=== PATIENT | male | born 1960 | race Hispanic/Latino ===

== ENCOUNTER 2016-07-10 09:46 | Outpatient (CLI) | payer BC ==
--- NOTE | 2016-07-10 14:47 | Fluoroscopy Report ---
DOUBLE CONTRAST BARIUM ENEMA INDICATION: Failed colonoscopy. Cirrhosis, hepatitis C. COMPARISON: None similar. FINDINGS: Preliminary radiograph demonstrates a nonobstructive bowel gas pattern. Few air containing small bowel loops in the left hemiabdomen measure up to 3.5 cm caliber/possible ileus. Osteopenia. Using fluoroscopic guidance, the entire colon filled in retrograde fashion with barium and air. The colonic caliber and mucosal pattern are normal in appearance, allowing for barium flocculation/stool artifact. Redundant transverse colon. No constricting lesions or fixed intraluminal masses identified. Reflux identified into the terminal ileum and/or appendix. CONCLUSION: Unremarkable air contrast barium enema. Thank you for the opportunity to participate in this patient's care.
== END 2016-07-10 09:47 | disposition home or self-care (01) ==
LOC: FLUORO 09:46
PROVIDERS: ATTEND Internal Medicine Gastroenterology
DX: Z12.11 Encounter for screening for malignant neoplasm of colon (principal); B19.20 Unspecified viral hepatitis C without hepatic coma; I85.00 Esophageal varices without bleeding; M85.80 Other specified disorders of bone density and structure, unspecified site; R18.8 Other ascites
CPT/HCPCS: 74280

== ENCOUNTER 2016-10-16 07:29 | Day surgery (SDC) | payer BC ==
[2016-10-16 08:53] LABS: INR 1.32 (0.87-1.13)
[2016-10-16 08:54] LABS: Partial Thromboplastin Time 30.4 Sec. (24.2-36.6)
--- NOTE | 2016-10-16 11:06 | Short Stay Summary ---
Short Stay Documentation Date of service: 10/16/16 - History Principal diagnosis: Ascites Past Medical History: hepatitis Social history: no significant social history - Allergies and Medications Current Medications: Allergies acetaminophen [From Tylenol] Allergy (Verified 10/16/16 08:00) Nausea Home Medications Medication Instructions Recorded Confirmed Last Taken Type ALPRAZolam [Xanax TAB] 1 mg PO TID PRN 02/15/15 10/16/16 10/15/16 History Oxycodone HCl [Roxicodone TAB] 30 mg PO Q6H PRN 02/15/15 10/16/16 10/16/16 06: 00 History Furosemide [Lasix TAB] 40 mg PO QDAY 06/18/15 10/16/16 10/15/16 History Propranolol [Inderal] 10 mg PO BID 06/18/15 10/16/16 10/15/16 History Spironolactone [Aldactone] 100 mg PO BID 06/18/15 10/16/16 10/15/16 History Lactulose 10 gram PO TID 02/03/16 10/16/16 10/15/16 History - Physical exam General appearance: no acute distress Integumentary: no rash HEENT: Atraumatic Lungs: Normal air movement Breasts: deferred Gastrointestinal: normal, no tenderness, distended Male Genitourinary: deferred Rectal Exam: deferred - Brief post op/procedure progress note Date of procedure: 10/16/16 Pre-op diagnosis: ascites Post-op diagnosis: same Procedure: paracentesis us guided Anesthesia: local Surgeon: MARCELLA GUERRIER Estimated blood loss: none Specimen disposition: to lab Condition: stable - Disposition Condition at discharge: Good Disposition: DISCHARGED TO HOME OR SELFCARE Short Stay Discharge Plan Activity: no restrictions Weight Bearing Status: Weight Bear as Tolerated Diet: regular Wound: keep clean and dry, per your surgeon's advice Follow up with: NARINDER STEVENS MD [Primary Care Provider] - 7 Days
--- NOTE | 2016-10-16 11:13 | Ultrasound Report ---
EXAM: ULTRASOUND GUIDED PARACENTESIS CLINICAL INDICATION: ASCITES DATE: 10/16/2016 PROCEDURE: Following dictation of the risks, benefits and alternatives; written informed consent was obtained. The patient was brought to the ultrasound suite and placed in spine position on the examination table. 4 quadrant ultrasound of the abdomen was performed and an appropriate access site in the left lower quadrant was chosen. The patient's left lower abdomen was prepped and draped in the usual sterile fashion. 1% lidocaine was used for anesthesia. Under ultrasound guidance, a 6 Cook Islander Yueh needle was advanced into the peritoneal cavity. The trocar was removed. A total of 5.1 L of clear yellow ascitic fluid was aspirated. A sample was sent for laboratory analysis. The Yueh needle was removed and hemostasis achieved using manual compression. A sterile dressing was applied. The patient tolerated the procedure well. There were no immediate post procedure complications. IMPRESSION: 1) Ultrasound guided paracentesis with 5.1 L of clear yellow ascitic fluid aspirated, a sample was sent for laboratory analysis.
[2016-10-16 11:14] VITALS: BP 108/61
== END 2016-10-16 11:25 | disposition home or self-care (01) ==
LOC: OPU 07:29 → EDSTATUS 09:00 → OPU 11:25
PROVIDERS: ATTEND Internal Medicine Gastroenterology
DX: R18.8 Other ascites (principal)
CPT/HCPCS: 36415; 49083; 85610; 85730; 87116; C1769

== ENCOUNTER 2017-01-29 13:18 | Day surgery (SDC) | payer BC ==
[2017-01-29] MEDS ORDERED: NORCO 5/325 PO ONE (14:05)
[2017-01-29] MEDS ORDERED: NORCO 5/325 ONE (14:06)
[2017-01-29 14:10] LABS: INR 1.23 (0.87-1.13)
--- NOTE | 2017-01-29 14:58 | Short Stay Summary ---
Short Stay Documentation Date of service: 01/29/17 - History Principal diagnosis: Ascites Past Medical History: hepatitis, other (cirrhosis) Past Surgical History: Other (paracentesis) Social history: no significant social history - Allergies and Medications Current Medications: Allergies acetaminophen [From Tylenol] Allergy (Verified 01/29/17 11:19) Nausea Home Medications Medication Instructions Recorded Confirmed Last Taken Type ALPRAZolam [Xanax TAB] 1 mg PO TID PRN 02/15/15 01/29/17 01/28/17 History Oxycodone HCl [Roxicodone TAB] 30 mg PO Q6H PRN 02/15/15 01/29/17 01/29/17 08: 00 History Furosemide [Lasix TAB] 40 mg PO QDAY 06/18/15 01/29/17 01/29/17 09:00 History Propranolol [Inderal] 10 mg PO BID 06/18/15 01/29/17 01/29/17 09:00 History Spironolactone [Aldactone] 100 mg PO BID 06/18/15 01/29/17 01/29/17 09:00 History Lactulose 10 gram PO TID 02/03/16 01/29/17 01/28/17 History - Physical exam General appearance: no acute distress HEENT: Atraumatic Lungs: Normal air movement Breasts: deferred Gastrointestinal: distended, no guarding, other (ascitic fluid wave) Male Genitourinary: deferred Female Genitourinary: deferred Rectal Exam: deferred Extremities: no ischemia Neurological: Normal gait, Normal tone - Brief post op/procedure progress note Date of procedure: 01/29/17 Pre-op diagnosis: Ascites Post-op diagnosis: same Procedure: US guided paracentesis Anesthesia: local Surgeon: MARCELLA GUERRIER Estimated blood loss: none Pathology: none Specimen disposition: to lab Condition: stable - Disposition Condition at discharge: Good Disposition: DC-01 TO HOME OR SELFCARE Short Stay Discharge Plan Activity: advance as tolerated Weight Bearing Status: Weight Bear as Tolerated Diet: regular Wound: keep clean and dry, per your surgeon's advice Follow up with: NARINDER STEVENS MD [Primary Care Provider] - 7 Days
--- NOTE | 2017-01-29 16:13 | Ultrasound Report ---
EXAM: ULTRASOUND GUIDED PARACENTESIS CLINICAL INDICATION: ASCITES DATE: 01/29/2017 PROCEDURE: Following explanation of the risks, benefits and alternatives; written informed consent was obtained. The patient left the ultrasound suite and placed in supine position on the stretcher. Four-quadrant ultrasound of the abdomen was performed and an appropriate access site was chosen in the right upper quadrant. The patient's right upper abdomen was prepped and draped in the usual sterile fashion. 1% lidocaine was used for anesthesia. Under ultrasound guidance, a 5 Bolivian Yueh needle was advanced into the ascitic fluid. An image was saved to document needle placement. The trocar needle was removed and a total of 8.3 L of clear yellow ascitic fluid was aspirated. A sample was sent for laboratory analysis. The needle was removed and hemostasis achieved using a neurocompression. A sterile dressing was then applied. The patient tolerated the procedure well. There were no immediate post procedure complications. IMPRESSION: 1) Ultrasound guided paracentesis with 8.3 L of clear yellow ascitic fluid aspirated. A sample was sent for laboratory analysis.
[2017-01-29 16:29] VITALS: BP 126/71
== END 2017-01-29 14:40 | disposition home or self-care (01) ==
LOC: CATHLABREC 13:18
PROVIDERS: ATTEND Radiology Diagnostic Radiology
DX: R18.8 Other ascites (principal); Z88.8 Allergy status to other drugs, medicaments and biological substances; Z86.19 Personal history of other infectious and parasitic diseases
CPT/HCPCS: 36415; 49083; 85610; 87116

== ENCOUNTER 2017-02-23 07:56 | Day surgery (SDC) | payer BC ==
--- NOTE | 2017-02-23 12:09 | Short Stay Summary ---
Short Stay Documentation Date of service: 02/23/17 - History Past Medical History: liver disease - Allergies and Medications Current Medications: Allergies acetaminophen [From Tylenol] Allergy (Verified 01/29/17 11:19) Nausea Home Medications Medication Instructions Recorded Confirmed Last Taken Type ALPRAZolam [Xanax TAB] 1 mg PO TID PRN 02/15/15 02/23/17 02/22/17 History 1mg Oxycodone HCl [Roxicodone TAB] 30 mg PO Q6H PRN 02/15/15 02/23/17 02/23/17 06: 00 History 30mg Furosemide [Lasix TAB] 40 mg PO QDAY 06/18/15 02/23/17 02/23/17 06:00 History 40mg Propranolol [Inderal] 10 mg PO BID 06/18/15 02/23/17 02/23/17 06:00 History 10mg Spironolactone [Aldactone] 100 mg PO BID 06/18/15 02/23/17 02/23/17 06:00 History 100mg Lactulose 10 gram PO TID 02/03/16 02/23/17 02/22/17 History 10 grams Omeprazole [Omeprazole] 40 mg PO DAILY 02/23/17 02/23/17 02/23/17 History 0600 Rifaximin [Xifaxan] 550 mg PO BID 02/23/17 02/23/17 02/23/17 06:00 History 550mg - Physical exam General appearance: no acute distress Gastrointestinal: distended - Brief post op/procedure progress note Date of procedure: 02/23/17 Pre-op diagnosis: Ascites Post-op diagnosis: same Procedure: US guided paracentesis. Anesthesia: local Findings: 6.25 liters of yellow serous fluid removed. Surgeon: SEGUN ROEMRO Estimated blood loss: none Specimen disposition: discarded Condition: stable - Disposition Condition at discharge: Stable Disposition: DC-01 TO HOME OR SELFCARE Short Stay Discharge Plan Follow up with: NARINDER STEVENS MD [Primary Care Provider] - 7 Days
--- NOTE | 2017-02-23 12:14 | Ultrasound Report ---
ULTRASOUND-GUIDED PARACENTESIS INDICATION: Ascites. COMPARISON: 01/29/2017. FINDINGS: After explaining the risk and benefits to the patient, written informed consent obtained. Using ultrasound guidance, an appropriate skin site in the right lower quadrant marked. Skin prepped and draped in the usual sterile fashion. 1% Xylocaine used for local anesthesia. Using ultrasound guidance, a 5 Iraqi Yueh catheter was placed into the fluid collection and 6250 cc of yellow serous fluid aspirated. No sample sent to laboratory. Catheter removed and hemostasis achieved. Patient tolerated the procedure well and left the radiology department in stable condition. 37.5 g of IV albumin 25% to be infused in the OPPU. CONCLUSION: Ultrasound guided paracentesis, as described above. Dr. Mckenzie present for and performed the entire procedure. Thank you for the opportunity to participate in this patient's care.
[2017-02-23] MEDS ORDERED: ALBURX 25% (ALBUMIN) IV ONE ×2 (13:00)
[2017-02-23 14:02] VITALS: BP 101/50
== END 2017-02-23 14:15 | disposition home or self-care (01) ==
LOC: CATHLABREC 07:56
PROVIDERS: ATTEND Radiology Diagnostic Radiology
DX: R18.8 Other ascites (principal)
CPT/HCPCS: 49083; 96365; P9047

== ENCOUNTER 2017-03-13 10:58 | Day surgery (SDC) | payer BC ==
[2017-03-13] MEDS ORDERED: ALBURX 25% (ALBUMIN) IV ONE (14:35)
[2017-03-13] MEDS ORDERED: ROXICODONE PO ONE (14:35)
--- NOTE | 2017-03-13 14:53 | Ultrasound Report ---
ULTRASOUND-GUIDED PARACENTESIS INDICATION: Ascites. COMPARISON: 02/23/2017. FINDINGS: After explaining the risk and benefits to the patient, written informed consent obtained. Using ultrasound guidance, an appropriate skin site in the right hemiabdomen laterally marked. Skin prepped and draped in the usual sterile fashion. 1% Xylocaine used for local anesthesia. Using ultrasound guidance, a 5 Divehi Yueh catheter was placed into the fluid collection and 6900 cc of straw-colored fluid aspirated. No sample sent to laboratory. Catheter removed and hemostasis achieved. Patient tolerated the procedure well and left the radiology department in stable condition. 50 g of IV albumin 25% to be infused the OPPU. CONCLUSION: Ultrasound guided paracentesis, as described above. Dr. Mckenzie present for and performed the entire procedure. Thank you for the opportunity to participate in this patient's care.
--- NOTE | 2017-03-13 15:01 | Short Stay Summary ---
Short Stay Documentation Date of service: 03/13/17 - History Past Medical History: hepatitis, liver disease - Allergies and Medications Current Medications: Allergies acetaminophen [From Tylenol] Allergy (Verified 01/29/17 11:19) Nausea Home Medications Medication Instructions Recorded Confirmed Last Taken Type ALPRAZolam [Xanax TAB] 1 mg PO TID PRN 02/15/15 03/13/17 03/13/17 History Oxycodone HCl [Roxicodone TAB] 30 mg PO Q6H PRN 02/15/15 03/13/17 03/13/17 History Furosemide [Lasix TAB] 40 mg PO QDAY 06/18/15 03/13/17 03/13/17 History Propranolol [Inderal] 10 mg PO BID 06/18/15 03/13/17 03/13/17 History Spironolactone [Aldactone] 100 mg PO BID 06/18/15 03/13/17 03/13/17 History Lactulose 10 gram PO TID 02/03/16 03/13/17 03/13/17 History Omeprazole [Omeprazole] 40 mg PO DAILY 02/23/17 03/13/17 03/13/17 History Rifaximin [Xifaxan] 550 mg PO BID 02/23/17 03/13/17 03/13/17 History Active Medications Albumin Human (Alburx 25% (Albumin)) 50 gm IV ONCE ONE Stop: 03/13/17 14:36 Oxycodone HCl (Roxicodone) 30 mg PO ONCE ONE Stop: 03/13/17 14:36 - Physical exam Gastrointestinal: distended, other (Large inguinal / scrotal hernias) - Brief post op/procedure progress note Date of procedure: 03/13/17 Pre-op diagnosis: Cirrhosis Post-op diagnosis: same Procedure: US guided paracentesis Anesthesia: local Findings: 6.9 liters of yellow serous fluid removed Surgeon: SEGUN ROMERO Estimated blood loss: none Specimen disposition: discarded Condition: stable - Disposition Condition at discharge: Stable Disposition: DC-01 TO HOME OR SELFCARE Short Stay Discharge Plan Follow up with: NARINDER STEVENS MD [Primary Care Provider] - 7 Days
[2017-03-13 16:53] VITALS: BP 110/61
== END 2017-03-13 17:06 | disposition home or self-care (01) ==
LOC: CATHLABREC 10:58 → EDSTATUS 12:00 → CATHLABREC 17:06
PROVIDERS: ATTEND Radiology Diagnostic Radiology
DX: R18.8 Other ascites (principal)
CPT/HCPCS: 49083; 96365; 96366; P9047

== ENCOUNTER 2017-04-28 18:16 | Emergency (ER) | payer BC ==
[2017-04-28 19:59] LABS: Hematocrit 40.6 % (35.5-45.6); Hemoglobin 13.5 gm/dl (11.8-15.2); Mean Corpuscular HGB Conc 33 % (32-34); Mean Corpuscular Hemoglobin 29 pg (28-32); Mean Corpuscular Volume 86 fl (84-94); Platelet Count 167 K/mm3 (140-440); Red Blood Count 4.72 M/mm3 (3.65-5.03); Red Cell Distribution Width 16.3 % (13.2-15.2); White Blood Count 7.1 K/mm3 (4.5-11.0)
[2017-04-28 20:21] LABS: Alanine Aminotransferase 14 units/L (7-56); Albumin 3.7 g/dL (3.9-5); Albumin/Globulin Ratio 1.2 %; Alkaline Phosphatase 107 units/L (35-129); Anion Gap 16 mmol/L; BUN/Creatinine Ratio 15; Blood Urea Nitrogen 9 mg/dL (9-20); Calcium 9.6 mg/dL (8.4-10.2); Carbon Dioxide 27 mmol/L (22-30); Chloride 95.7 mmol/L (98-107); Glucose 117 mg/dL (75-100); Potassium 4.9 mmol/L (3.6-5.0); Sodium 134 mmol/L (137-145); Total Protein 6.8 g/dL (6.3-8.2)
[2017-04-28 21:07] LABS: Bilirubin,Urine NEG (Negative); Blood,Urine NEG (Negative); Ketones,Urine NEG (Negative); Leukocyte Esterase,Urine NEG (Negative); Nitrite,Urine NEG (Negative); Protein,Urine <15 mg/dL mg/dL (Negative); Urobilinogen,Urine < 2.0 mg/dL (<2.0); WBC,Urine < 1.0 /HPF (0.0-6.0)
[2017-04-29] MEDS ORDERED: DILAUDID IM ONE (09:07)
[2017-04-29] MEDS ORDERED: ZOFRAN IM ONE (09:07)
--- NOTE | 2017-04-29 09:12 | Emergency Department Report ---
HPI - General Chief Complaint: Pain General - HPI HPI: Room 5 The patient is a 56-year-old male presenting with a chief complaint of hernia pain and back pain. Patient has a history of chronic back pain and chronic bilateral inguinal hernias which she states she's had for 3 years but he states no surgeon will repair them secondary to his other medical issues. The patient states pain began again 2 days ago. Patient denies any recent trauma or fever. Patient denies nausea or vomiting. Patient states he had his last bowel movement a few moments ago in the ED. Patient currently denies abdominal pain Location: Back, hernia Duration: 3 years, recurred 2 days ago Quality: Pain Severity:03/13 Modifying factors: [see above] Context: [see above] Mode of transportation: [not driving] ED Past Medical Hx - Past Medical History Hx Hypertension: Yes Hx Diabetes: Yes Hx Liver Disease: Yes (cirrhosis) Hx Kidney Stones: Yes - Family History Family history: no significant - Social History Smoking Status: Never Smoker Substance Use Type: None (denies illicit drug use) - Medications Home Medications: Home Medications Medication Instructions Recorded Confirmed Last Taken Type ALPRAZolam [Xanax TAB] 1 mg PO TID PRN 02/15/15 04/05/17 04/10/17 History Oxycodone HCl [Roxicodone TAB] 30 mg PO Q6H PRN 02/15/15 04/05/17 04/10/17 History Furosemide [Lasix TAB] 40 mg PO QDAY 06/18/15 04/05/17 04/10/17 History Propranolol [Inderal] 10 mg PO BID 06/18/15 04/05/17 04/11/17 History Spironolactone [Aldactone] 100 mg PO BID 06/18/15 04/05/17 04/10/17 History Lactulose 10 gram PO TID 02/03/16 04/05/17 04/10/17 History Omeprazole 40 mg PO DAILY 02/23/17 04/05/17 04/10/17 History Rifaximin [Xifaxan] 550 mg PO BID 02/23/17 04/05/17 04/10/17 History oxyCODONE [Roxicodone TAB] 5 mg PO Q6HR PRN #10 tablet 04/29/17 Unknown Rx ED Review of Systems ROS: Stated complaint: BACK PAIN Other details as noted in HPI Constitutional: denies: fever Gastrointestinal: denies: abdominal pain, nausea, vomiting, constipation Musculoskeletal: back pain Physical Exam - Physical Exam Vital Signs: Vital Signs 04/28/17 04/28/17 19:37 22:53 Temperature 98.8 F 99.0 F Pulse Rate 75 80 Respiratory 18 18 Rate Blood Pressure 124/99 135/87 O2 Sat by Pulse 100 96 Oximetry Physical Exam: GENERAL: The patient is well-developed well-nourished male lying on stretcher not appearing to be in acute distress. [] HEENT: Normocephalic. Atraumatic. Extraocular motions are intact. Patient has moist mucous membranes. NECK: Supple. Trachea midline CHEST/LUNGS: Clear to auscultation. There is no respiratory distress noted. HEART/CARDIOVASCULAR: Regular. There is no tachycardia. There is no gallop rub or murmur. ABDOMEN: Abdomen is soft, nontender. Patient has normal bowel sounds. There is no abdominal distention. SKIN: There is no rash. There is no edema. There is no diaphoresis. NEURO: The patient is awake, alert, and oriented. The patient is cooperative. The patient has normal speech MUSCULOSKELETAL: There is no evidence of acute injury. GENITOURINARY: Very large bilateral inguinal hernias which are easily reducible ED Course Vital Signs 04/28/17 04/28/17 19:37 22:53 Temperature 98.8 F 99.0 F Pulse Rate 75 80 Respiratory 18 18 Rate Blood Pressure 124/99 135/87 O2 Sat by Pulse 100 96 Oximetry ED Medical Decision Making - Lab Data Result diagrams: 04/28/17 19:51 04/28/17 19:51 Laboratory Tests 04/28/17 04/28/17 04/28/17 19:51 19:51 Unknown WBC 7.1 RBC 4.72 Hgb 13.5 Hct 40.6 MCV 86 MCH 29 MCHC 33 RDW 16.3 H Plt Count 167 Sodium 134 L Potassium 4.9 Chloride 95.7 L Carbon Dioxide 27 Anion Gap 16 BUN 9 Creatinine 0.6 L Estimated GFR > 60 BUN/Creatinine Ratio 15 Glucose 117 H Calcium 9.6 Total Bilirubin 1.30 H AST 32 ALT 14 Alkaline Phosphatase 107 Total Protein 6.8 Albumin 3.7 L Albumin/Globulin Ratio 1.2 Urine Color Straw Urine Turbidity Clear Urine pH 6.0 Ur Specific Kn[place] 1.006 Urine Protein <15 mg/dl Urine Glucose (UA) Neg Urine Ketones Neg Urine Blood Neg Urine Nitrite Neg Urine Bilirubin Neg Urine Urobilinogen < 2.0 Ur Leukocyte Esterase Neg Urine WBC (Auto) < 1.0 Urine RBC (Auto) 0.0 Hyaline Casts 1 - Differential Diagnosis chronic back pain, chronic abdominal hernia pain, drug-seeking behavior Critical care attestation.: If time is entered above; I have spent that time in minutes in the direct care of this critically ill patient, excluding procedure time. ED Disposition Clinical Impression: Chronic back pain, Bilateral inguinal hernia Disposition: TO HOME OR SELFCARE Is pt being admited?: No Does the pt Need Aspirin: No Condition: Stable Instructions: Inguinal Hernia (ED), Chronic Back Pain (ED) Additional Instructions: Return to the emergency department immediately should you develop worsening symptoms, fever, inability to tolerate food or liquid or any other concerns. Prescriptions: oxyCODONE [Roxicodone TAB] 5 mg PO Q6HR PRN #10 tablet PRN Reason: Pain Referrals: PRIMARY CAREMD [Primary Care Provider] - 3-5 Days HARESH MARI MD [Staff Physician] - 3-5 Days (Dr. Mari is a surgeon. Please follow up with him for further evaluation) Time of Disposition: 09:18
[2017-04-29 09:31] VITALS: BP 125/73
== END 2017-04-29 09:47 | disposition home or self-care (01) ==
LOC: ED 18:16
DX: K40.20 Bilateral inguinal hernia, without obstruction or gangrene, not specified as recurrent (principal); I10 Essential (primary) hypertension; E11.9 Type 2 diabetes mellitus without complications
CPT/HCPCS: 36415; 80053; 81001; 85027; 96372; 99283; J1170; J2405

== ENCOUNTER 2017-05-04 08:17 | Day surgery (SDC) | payer BC ==
[2017-05-04 09:44] LABS: INR 1.15 (0.87-1.13)
[2017-05-04 09:45] LABS: Partial Thromboplastin Time 34.1 Sec. (24.2-36.6)
[2017-05-04] MEDS ORDERED: ALBURX 25% (ALBUMIN) IV ONE (11:16)
--- NOTE | 2017-05-04 11:39 | Short Stay Summary ---
Short Stay Documentation Date of service: 05/04/17 - History Principal diagnosis: Ascites Past Medical History: hepatitis Past Surgical History: No surgical history Social history: no significant social history - Allergies and Medications Current Medications: Allergies NSAIDS (Non-Steroidal Anti-Inflamma Allergy (Mild, Verified 04/05/17 11:19) Bleeding ulcer acetaminophen [From Tylenol] Allergy (Verified 01/29/17 11:19) Nausea Home Medications Medication Instructions Recorded Confirmed Last Taken Type ALPRAZolam [Xanax TAB] 1 mg PO TID PRN 02/15/15 05/04/17 05/01/17 History 1mg Furosemide [Lasix TAB] 40 mg PO QDAY 06/18/15 05/04/17 05/04/17 06:00 History 40mg Propranolol [Inderal] 10 mg PO BID 06/18/15 05/04/17 05/04/17 History 10mg Spironolactone [Aldactone] 100 mg PO BID 06/18/15 05/04/17 05/04/17 06:15 History Lactulose 10 gram PO TID 02/03/16 05/04/17 04/28/17 History 10gm Omeprazole 40 mg PO DAILY 02/23/17 05/04/17 05/04/17 06:00 History Rifaximin [Xifaxan] 550 mg PO BID 02/23/17 05/04/17 05/04/17 06:15 History oxyCODONE [Roxicodone TAB] 5 mg PO Q6HR PRN #10 tablet 04/29/17 05/04/17 06:00 Rx 5mg Tapentadol HCl [Nucynta ER] 50 mg PO Q12H 05/04/17 05/04/17 05/04/17 06:15 History 50mg - Physical exam General appearance: no acute distress HEENT: Atraumatic Lungs: Normal air movement Breasts: deferred Heart: Regular rate Gastrointestinal: no tenderness, distended Male Genitourinary: deferred Female Genitourinary: deferred Rectal Exam: deferred - Brief post op/procedure progress note Date of procedure: 05/04/17 Pre-op diagnosis: Ascites Post-op diagnosis: same Procedure: us guided paracentesis Anesthesia: local Surgeon: MARCELLA GUERRIER Estimated blood loss: none Specimen disposition: to lab Condition: stable - Disposition Condition at discharge: Good Disposition: DC-01 TO HOME OR SELFCARE Short Stay Discharge Plan Activity: advance as tolerated Weight Bearing Status: Weight Bear as Tolerated Diet: regular Wound: keep clean and dry, per your surgeon's advice
--- NOTE | 2017-05-04 11:53 | Ultrasound Report ---
EXAM: ULTRASOUND GUIDED PARACENTESIS CLINICAL INDICATION: ASCITES, HEPATITIS DATE: 05/04/2017 PROCEDURE: Following an examination of the risks, benefits and alternatives; written informed consent was obtained. The patient was brought to the ultrasound suite and placed in supine position on the examination table. Initial ultrasound of the abdomen demonstrates moderate to large amount of ascites. An appropriate access site was chosen along the left lower quadrant in the patient's abdomen prepped and draped in the usual sterile fashion. 1% lidocaine was used for anesthesia. Under ultrasound guidance, a 5 [place] Korean Littlejohn needle was advanced into the ascitic fluid. Images were saved to document needle placement. A total of 8.8 L of clear yellow ascitic fluid was aspirated. A sample was sent for laboratory analysis. Following aspiration, the needle was removed and hemostasis achieved using manual compression. A sterile dressing was applied. The patient tolerated the procedure well. There were no immediate post procedure complications. IMPRESSION: 1) Ultrasound guided paracentesis with 8.8 L of clear yellow ascitic fluid aspirated. A sample was sent for laboratory analysis.
[2017-05-04 12:15] VITALS: BP 103/70
== END 2017-05-04 12:30 | disposition home or self-care (01) ==
LOC: CATHLABREC 08:17 → EDSTATUS 09:00 → CATHLABREC 12:30
PROVIDERS: ATTEND Radiology Diagnostic Radiology
DX: R18.8 Other ascites (principal); K75.89 Other specified inflammatory liver diseases; Z79.899 Other long term (current) drug therapy
CPT/HCPCS: 36415; 49083; 85610; 85730; 87116; 96374; P9047

== ENCOUNTER 2017-05-23 10:50 | Day surgery (SDC) | payer BC ==
--- NOTE | 2017-05-23 12:59 | Operative Report ---
Operative Report Operative Report: Procedure: Ultrasound-guided paracentesis Date of Procedure: 05/23/2017 History/Indication: 56-year-old male with liver failure, here for therapeutic paracentesis Physician: Dominic Heath MD Technique/Procedural Details: Informed consent was obtained. The patient was placed in the supine position on a stretcher. Preliminary sonographic imaging of the left lower quadrant was performed, and images were obtained. The patient was then prepped and draped in the usual sterile fashion. A timeout was performed. Local anesthetic was administered. Under continuous ultrasound guidance, a 5 [place] Islander Store Eyeseh catheter was advanced into the peritoneal space in the left lower quadrant. This was connected to vacuum tubing. There is immediate, brisk flow of clear, straw- colored fluid into the vacuum canister. Discussion: Sonographic examination of the left lower quadrant reveals a large amount of ascites. There is successful placement of a 5 Solomon Islander drainage catheter into the peritoneal space. Specimen: None EBL: <5 cc
[2017-05-23] MEDS ORDERED: ALBURX 25% (ALBUMIN) IV SCH ×2 (14:14→15:00)
[2017-05-23] MEDS ORDERED: ROXICODONE PO ONE (15:00)
[2017-05-23 15:38] VITALS: BP 103/50
== END 2017-05-23 15:55 | disposition home or self-care (01) ==
LOC: CATHLABREC 10:50 → EDSTATUS 05-24 09:00
PROVIDERS: ATTEND Radiology Diagnostic Radiology
DX: K70.31 Alcoholic cirrhosis of liver with ascites (principal); K70.40 Alcoholic hepatic failure without coma
CPT/HCPCS: 49083; 96365; P9047

== ENCOUNTER 2017-06-05 09:04 | Day surgery (SDC) | payer BC ==
[2017-06-05 10:24] LABS: INR 1.08 (0.87-1.13)
[2017-06-05 10:25] LABS: Partial Thromboplastin Time 34.9 Sec. (24.2-36.6)
[2017-06-05] MEDS ORDERED: ALBURX 25% (ALBUMIN) IV ONE (13:22)
[2017-06-05 15:26] VITALS: BP 116/64
--- NOTE | 2017-06-05 17:11 | Operative Report ---
Operative Report Operative Report: Operative Report: Procedure: Ultrasound-guided paracentesis Date of Procedure: 06/05/2017 History/Indication: 56-year-old male with liver failure, here for therapeutic paracentesis Physician: Dominic Heath MD Technique/Procedural Details: Informed consent was obtained. The patient was placed in the supine position on a stretcher. Preliminary sonographic imaging of the left lower quadrant was performed, and images were obtained. The patient was then prepped and draped in the usual sterile fashion. A timeout was performed. Local anesthetic was administered. Under continuous ultrasound guidance, a 5 Serbian IPLocks catheter was advanced into the peritoneal space in the left lower quadrant. This was connected to vacuum tubing. There is immediate, brisk flow of clear, straw- colored fluid into the vacuum canister. Discussion: Sonographic examination of the left lower quadrant reveals a large amount of ascites. There is successful placement of a 5 Serbian drainage catheter into the peritoneal space. 7.5 liters of clear straw colored fluid was drained. Specimen: None EBL: <5 cc
== END 2017-06-05 15:30 | disposition home or self-care (01) ==
LOC: CATHLABREC 09:04 → US 09:04 → CATHLABREC 15:30
PROVIDERS: ATTEND Radiology Diagnostic Radiology
DX: K70.31 Alcoholic cirrhosis of liver with ascites (principal); Z87.891 Personal history of nicotine dependence
CPT/HCPCS: 36415; 49083; 85610; 85730; 96365; P9047

== ENCOUNTER 2017-06-29 11:19 | Day surgery (SDC) | payer BC ==
--- NOTE | 2017-06-29 15:03 | Ultrasound Report ---
EXAM: Ultrasound guided needle placement in the peritoneal cavity Image guided paracentesis CLINICAL INDICATION: Ascites DATE: 06/29/17 DIRECT CARE PROFESSIONAL: MARCELLA ORTIZ MD MEDICATIONS: Local anesthetic PROCEDURE: Following an explanation of the risks, benefits and alternatives; written informed consent was obtained. The patient was brought to the angiographic suite and positioned in a supine position. The abdomen was prepped and draped in a sterile fashion. The ascites was assessed with ultrasound and determined to be amenable to ultrasound-guided percutaneous drainage. The skin was infiltrated with lidocaine. The peritoneum was infiltrated with lidocaine under ultrasound guidance. Under ultrasound guidance a 5 Fr Yueh needle with valve was passed into the ascites. The Yueh needle was connected to a drainage bag and the abdominal ascites was aspirated. The Yueh needle was removed and a sterile dressing was applied. The patient tolerated the procedure well. There were no immediate postprocedural complications. FINDINGS: 1. Satisfactory window for ultrasound guided paracentesis. 2. A total of 6 L of fluid were removed. The fluid was straw yellow colored. IMPRESSION: Ultrasound guided paracentesis of the abdominal ascites.
--- NOTE | 2017-06-29 15:05 | Short Stay Summary ---
Short Stay Documentation Date of service: 06/29/17 Narrative H&P: Recurrent ascites in a patient with cirrhosis. - History Principal diagnosis: Ascites H&P: obtained from office Past Medical History: other (cirrhosis) - Allergies and Medications Current Medications: Allergies NSAIDS (Non-Steroidal Anti-Inflamma Allergy (Mild, Verified 04/05/17 11:19) Bleeding ulcer acetaminophen [From Tylenol] Allergy (Verified 01/29/17 11:19) Nausea Home Medications Medication Instructions Recorded Confirmed Last Taken Type ALPRAZolam [Xanax TAB] 1 mg PO TID PRN 02/15/15 06/29/17 06/27/17 History 1mg Furosemide [Lasix TAB] 40 mg PO QDAY 06/18/15 06/29/17 06/29/17 06:00 History Propranolol [Inderal] 10 mg PO BID 06/18/15 06/29/17 06/29/17 06:00 History 10mg Spironolactone [Aldactone] 100 mg PO BID 06/18/15 06/29/17 06/29/17 06:00 History Lactulose 10 gram PO TID 02/03/16 06/29/17 06/29/17 06:00 History 10gr Rifaximin [Xifaxan] 550 mg PO BID 02/23/17 06/29/17 06/29/17 06:00 History oxyCODONE [Roxicodone TAB] 5 mg PO Q6HR PRN #10 tablet 04/29/17 06/29/17 06:00 Rx 5mg Active Medications Albumin Human (Alburx 25% (Albumin)) 50 gm IV ONCE ONE Stop: 06/29/17 15:51 - Physical exam General appearance: no acute distress Lungs: Normal air movement Gastrointestinal: distended (ascites) - Brief post op/procedure progress note Date of procedure: 06/29/17 Pre-op diagnosis: ascites Post-op diagnosis: same Procedure: us guided paracentesis Anesthesia: local (w/ conscious sedation) Surgeon: MARCELLA ORTIZ Estimated blood loss: minimal Condition: stable - Hospital course Hospital course: albumin infused. tolerated procedure well. ready for discharge. - Disposition Condition at discharge: Stable Disposition: DC- TO HOME OR SELFCARE - Discharge Diagnoses (1) Ascites of liver Status: Acute Short Stay Discharge Plan Activity: advance as tolerated Weight Bearing Status: Weight Bear as Tolerated Diet: low salt, other (less than 1.5L per day) Wound: keep clean and dry Special Instructions: restrict fluid intake to (1.5 L per day) Follow up with: MIRANDA RIVAS MD [Primary Care Provider] - 7 Days
[2017-06-29] MEDS ORDERED: ALBURX 25% (ALBUMIN) IV ONE (15:50)
[2017-06-29 16:19] VITALS: BP 113/60
== END 2017-06-29 16:32 | disposition home or self-care (01) ==
LOC: CATHLABREC 11:19 → EDSTATUS 12:00 → CATHLABREC 16:32
PROVIDERS: ATTEND Radiology Diagnostic Radiology
DX: R18.8 Other ascites (principal); K74.60 Unspecified cirrhosis of liver; Z88.5 Allergy status to narcotic agent
CPT/HCPCS: 49083; 96365; P9047

== ENCOUNTER 2017-07-26 09:20 | Day surgery (SDC) | payer BC ==
[2017-07-26 11:14] LABS: INR 1.14 (0.87-1.13)
[2017-07-26 11:15] LABS: Partial Thromboplastin Time 33.1 Sec. (24.2-36.6)
--- NOTE | 2017-07-26 12:00 | Short Stay Summary ---
Short Stay Documentation Date of service: 07/26/17 Narrative H&P: 57-year-old male with cirrhosis and ascites - History Principal diagnosis: ascites Past Medical History: other (cirrhosis) Past Surgical History: Other (multiple paracenteses) - Allergies and Medications Current Medications: Allergies NSAIDS (Non-Steroidal Anti-Inflamma Allergy (Mild, Verified 04/05/17 11:19) Bleeding ulcer acetaminophen [From Tylenol] Allergy (Verified 01/29/17 11:19) Nausea Home Medications Medication Instructions Recorded Confirmed Last Taken Type ALPRAZolam [Xanax TAB] 1 mg PO TID PRN 02/15/15 07/26/17 07/25/17 History 1mg Furosemide [Lasix TAB] 40 mg PO QDAY 06/18/15 07/26/17 07/26/17 06:30 History 40mg Propranolol [Inderal] 10 mg PO BID 06/18/15 07/26/17 07/26/17 06:30 History 10mg Spironolactone [Aldactone] 100 mg PO BID 06/18/15 07/26/17 07/26/17 06:30 History 100mg Lactulose 10 gram PO TID 02/03/16 07/26/17 07/26/17 06:30 History 10gram Rifaximin [Xifaxan] 550 mg PO BID 02/23/17 07/26/17 07/26/17 06:30 History 550mg Methadone [Dolophine] 10 mg PO BID 07/26/17 07/26/17 07/26/17 06:30 History 10mg Morphine Sulfate [Morphine Sulfate 15 mg PO DAILY 07/26/17 07/26/17 07/26/17 06: 30 History IR] 15mg - Physical exam General appearance: no acute distress Lungs: Normal air movement Gastrointestinal: normal - Brief post op/procedure progress note Date of procedure: 07/26/17 Pre-op diagnosis: ascites Post-op diagnosis: same Procedure: us guided paracentesis Anesthesia: local Surgeon: MARCELLA ORTIZ Estimated blood loss: minimal Condition: stable - Hospital course Hospital course: Ready for discharge. - Disposition Condition at discharge: Stable Disposition: DC-01 TO HOME OR SELFCARE Short Stay Discharge Plan Follow up with: MIRANDA RIVAS MD [Primary Care Provider] - 7 Days
[2017-07-26] MEDS ORDERED: ALBURX 25% (ALBUMIN) IV ONE ×2 (13:21→13:22)
[2017-07-26 15:07] VITALS: BP 118/66
--- NOTE | 2017-07-27 16:38 | Ultrasound Report ---
EXAM: Ultrasound guided needle placement in the peritoneal cavity Image guided paracentesis CLINICAL INDICATION: Ascites DATE: 07/26/17 INDUSTRIAL PROPERTY APPRAISER: MARCELLA ORTIZ MD MEDICATIONS: Local anesthetic. PROCEDURE: Following an explanation of the risks, benefits and alternatives; written informed consent was obtained. The patient was brought to the angiographic suite and positioned in a supine position. The abdomen was prepped and draped in a sterile fashion. The ascites was assessed with ultrasound and determined to be amenable to ultrasound-guided percutaneous drainage. The skin was infiltrated with lidocaine. The peritoneum was infiltrated with lidocaine under ultrasound guidance. Under ultrasound guidance a 5 Fr Yueh needle with valve was passed into the ascites. The Yueh needle was connected to a drainage bag and the abdominal ascites was aspirated. The Yueh needle was removed and a sterile dressing was applied. The patient tolerated the procedure well. There were no immediate postprocedural complications. FINDINGS: 1. Satisfactory window for ultrasound guided paracentesis. 2. A total of 7.6 L of fluid were removed. The fluid was straw yellow colored. IMPRESSION: Ultrasound guided paracentesis of the abdominal ascites.
== END 2017-07-26 15:25 | disposition home or self-care (01) ==
LOC: CATHLABREC 09:20
PROVIDERS: ATTEND Radiology Diagnostic Radiology
DX: R18.8 Other ascites (principal); K74.60 Unspecified cirrhosis of liver; Z88.8 Allergy status to other drugs, medicaments and biological substances; Z79.899 Other long term (current) drug therapy
CPT/HCPCS: 36415; 49083; 85610; 85730; 96365; P9047

== ENCOUNTER 2017-09-02 13:57 | Inpatient (IN) | payer BC ==
[2017-09-02 15:39] LABS: Basophils # (Auto) 0.1 K/mm3 (0.0-0.1); Eosinophils # (Auto) 0.2 K/mm3 (0.0-0.4); Eosinophils % (Auto) 3.5 % (0.0-4.3); Hematocrit 38.6 % (35.5-45.6); Hemoglobin 13.2 gm/dl (11.8-15.2); Lymphocytes # (Auto) 0.9 K/mm3 (1.2-5.4); Lymphocytes % (Auto) 14.2 % (13.4-35.0); Mean Corpuscular HGB Conc 34 % (32-34); Mean Corpuscular Hemoglobin 29 pg (28-32); Mean Corpuscular Volume 85 fl (84-94); Monocytes # (Auto) 0.9 K/mm3 (0.0-0.8); Monocytes % (Auto) 13.8 % (0.0-7.3); Platelet Count 135 K/mm3 (140-440); Red Blood Count 4.57 M/mm3 (3.65-5.03); Red Cell Distribution Width 16.1 % (13.2-15.2)
[2017-09-02 15:45] LABS: INR 1.19 (0.87-1.13)
[2017-09-02 15:46] LABS: Partial Thromboplastin Time 33.9 Sec. (24.2-36.6)
--- NOTE | 2017-09-02 15:52 | XRay Report ---
FINAL REPORT EXAM: XR CHEST 1V AP HISTORY: hypertension TECHNIQUE: Chest, AP PRIORS: None. FINDINGS: The heart size is normal. Mediastinal contours are normal. Pulmonary vasculature is not congested. The lungs are clear. There are no pleural effusion seen. There is no evidence of pneumothorax. IMPRESSION: There is no acute abnormality identified.
--- NOTE | 2017-09-02 15:52 | Cat Scan Report ---
FINAL REPORT EXAM: CT HEAD/BRAIN WO CON HISTORY: ams TECHNIQUE: CT of the head was performed. No intravenous contrast was administered. PRIORS: None. FINDINGS: There is no evidence of intracranial hemorrhage. There is no edema, mass effect or midline shift. There are no abnormal extra-axial fluid collections. The ventricles are appropriate for brain volume. There is no skull fracture seen. The visualized aspects of the sinuses are clear. IMPRESSION: There is no acute intracranial abnormality identified.
[2017-09-02 16:01] LABS: Creatine Kinase MB 1.6 ng/mL (0.0-4.0)
[2017-09-02 16:02] LABS: Alanine Aminotransferase 15 units/L (7-56); Albumin 3.9 g/dL (3.9-5); BUN/Creatinine Ratio 13; Blood Urea Nitrogen 9 mg/dL (9-20); Hemolysis Index 2
[2017-09-02 16:50] LABS: Bilirubin,Urine NEG (Negative); Blood,Urine NEG (Negative); Color,Urine Yellow (Yellow); Hyaline Casts,Urine 1 /LPF; Protein,Urine <15 mg/dL mg/dL (Negative)
[2017-09-02] MEDS ORDERED: CEPHULAC PO ONE (16:53)
--- NOTE | 2017-09-02 16:57 | Emergency Department Report ---
ED Altered Mental Status HPI - General Chief Complaint: Altered Mental Status Stated Complaint: HE LIVER Time Seen by Provider: 09/02/17 16:26 Source: patient, family () Mode of arrival: Wheelchair Limitations: Altered Mental Status - History of Present Illness Initial Comments: 57-year-old male with a past medical history of alcohol liver cirrhosis, diabetes, and hypertension presents to the hospital signs of alteration in mental status for the past 5 days. Last week patient had a Tipps procedure performed at [facility]. He has been intermittently compliant with his lactulose. Mental status continued to worsen and therefore patient presented to the ED with his . Patient is alert, oriented to self only. Able to follow commands with no focal complaints of pain complaints. MD Complaint: altered mental status - Related Data Home Medications Medication Instructions Recorded Confirmed Last Taken ALPRAZolam [Xanax TAB] 1 mg PO TID PRN 02/15/15 07/26/17 07/25/17 1mg Furosemide [Lasix TAB] 40 mg PO QDAY 06/18/15 07/26/17 07/26/17 06:30 40mg Propranolol [Inderal] 10 mg PO BID 06/18/15 07/26/17 07/26/17 06:30 10mg Spironolactone [Aldactone] 100 mg PO BID 06/18/15 07/26/17 07/26/17 06:30 100mg Lactulose 10 gram PO TID 02/03/16 07/26/17 07/26/17 06:30 10gram Rifaximin [Xifaxan] 550 mg PO BID 02/23/17 07/26/17 07/26/17 06:30 550mg Methadone [Dolophine] 10 mg PO BID 07/26/17 07/26/17 07/26/17 06:30 10mg Morphine Sulfate [Morphine Sulfate 15 mg PO DAILY 07/26/17 07/26/17 07/26/17 06: 30 IR] 15mg Allergies Allergy/AdvReac Type Severity Reaction Status Date / Time NSAIDS (Non-Steroidal Allergy Mild Bleeding Verified 04/05/17 11:19 Anti-Inflamma ulcer acetaminophen [From Tylenol] Allergy Nausea Verified 01/29/17 11:19 ED Review of Systems ROS: Stated complaint: HE LIVER Other details as noted in HPI Comment: All other systems reviewed and negative ED Past Medical Hx - Past Medical History Previous Medical History?: Yes Hx Hypertension: Yes Hx Heart Attack/AMI: No Hx Diabetes: Yes Hx Liver Disease: Yes (cirrhosis) Hx Renal Disease: No Hx Seizures: No Hx Kidney Stones: Yes Hx Asthma: No - Surgical History Past Surgical History?: Yes Additional Surgical History: TIPs procedure performed 08/24/17 at [facility] - Social History Smoking Status: Former Smoker Substance Use Type: None - Medications Home Medications: Home Medications Medication Instructions Recorded Confirmed Last Taken Type ALPRAZolam [Xanax TAB] 1 mg PO TID PRN 02/15/15 07/26/17 07/25/17 History 1mg Furosemide [Lasix TAB] 40 mg PO QDAY 06/18/15 07/26/17 07/26/17 06:30 History 40mg Propranolol [Inderal] 10 mg PO BID 06/18/15 07/26/17 07/26/17 06:30 History 10mg Spironolactone [Aldactone] 100 mg PO BID 06/18/15 07/26/17 07/26/17 06:30 History 100mg Lactulose 10 gram PO TID 02/03/16 07/26/17 07/26/17 06:30 History 10gram Rifaximin [Xifaxan] 550 mg PO BID 02/23/17 07/26/17 07/26/17 06:30 History 550mg Methadone [Dolophine] 10 mg PO BID 07/26/17 07/26/17 07/26/17 06:30 History 10mg Morphine Sulfate [Morphine Sulfate 15 mg PO DAILY 07/26/17 07/26/17 07/26/17 06: 30 History IR] 15mg ED Physical Exam - General Limitations: Altered Mental Status - Other Other exam information: General: No limitations, patient is alert in no acute distress Head exam: Atraumatic, normocephalic Eyes exam: pupils equal reactive to light ENT: Moist mucous membrane, Neck exam: Normal inspection, full range of motion, no meningismus nontender Respiratory exam: Clear to auscultation bilateral, no wheezes, rales, crackles Cardiovascular: Normal rate and rhythm, Abdomen: Soft, nondistended, with normal bowel sounds, no rebound, or guarding Extremity: Full range of motion normal inspection no deformity Back: Normal Inspection, full range of motion, no tenderness Neurologic: Alert, oriented x1 (self), cranial nerves intact, no motor or sensory deficit Psychiatric: normal affect, normal mood Skin: Warm, dry, intact ED Course Vital Signs 09/02/17 13:59 Temperature 97.7 F Pulse Rate 61 Respiratory 16 Rate Blood Pressure 120/64 Blood Pressure 120/64 [Left] - Reevaluation(s) Reevaluation #1: 09/02/17 18:10 pt stable, tolerating po - Consultations Consultation #1: 09/02/17 case d/w Dr Donahue (GI) will consult - Lab Data Result diagrams: 09/02/17 15:20 09/02/17 15:20 Lab Results 09/02/17 09/02/17 09/02/17 Range/Units 14:32 15:20 15:20 WBC 6.3 (4.5-11.0) K/mm3 RBC 4.57 (3.65-5.03) M/mm3 Hgb 13.2 (11.8-15.2) gm/dl Hct 38.6 (35.5-45.6) % MCV 85 (84-94) fl MCH 29 (28-32) pg MCHC 34 (32-34) % RDW 16.1 H (13.2-15.2) % Plt Count 135 L (140-440) K/mm3 Lymph % (Auto) 14.2 (13.4-35.0) % [place] % (Auto) 13.8 H (0.0-7.3) % Eos % (Auto) 3.5 (0.0-4.3) % Baso % (Auto) 1.0 (0.0-1.8) % Lymph # 0.9 L (1.2-5.4) K/mm3 [place] # 0.9 H (0.0-0.8) K/mm3 Eos # 0.2 (0.0-0.4) K/mm3 Baso # 0.1 (0.0-0.1) K/mm3 Seg Neutrophils % 67.5 (40.0-70.0) % Seg Neutrophils # 4.2 (1.8-7.7) K/mm3 PT (12.2-14.9) Sec. INR (0.87-1.13) APTT (24.2-36.6) Sec. Sodium 130 L (137-145) mmol/L Potassium 4.6 (3.6-5.0) mmol/L Chloride 90.7 L (98-107) mmol/L Carbon Dioxide 25 (22-30) mmol/L Anion Gap 19 mmol/L BUN 9 (9-20) mg/dL Creatinine 0.7 L (0.8-1.5) mg/dL Estimated GFR > 60 ml/min BUN/Creatinine Ratio 13 % Glucose 125 H (75-100) mg/dL POC Glucose 135 H (70-105) Calcium 10.0 (8.4-10.2) mg/dL Magnesium (1.7-2.3) mg/dL Total Bilirubin 2.20 H (0.1-1.2) mg/dL AST 35 (5-40) units/L ALT 15 (7-56) units/L Alkaline Phosphatase 124 (35-129) units/L Ammonia (25-60) umol/L Total Creatine Kinase (55-170) units/L CK-MB (CK-2) (0.0-4.0) ng/mL CK-MB (CK-2) Rel Index (0-4) Troponin T (0.00-0.029) ng/mL NT-Pro-B Natriuret Pep (0-900) pg/mL Total Protein 7.0 (6.3-8.2) g/dL Albumin 3.9 (3.9-5) g/dL Albumin/Globulin Ratio 1.3 % TSH (0.270-4.200) mlU/mL Urine Color (Yellow) Urine Turbidity (Clear) Urine pH (5.0-7.0) Ur Specific [place] (1.003-1.030) Urine Protein (Negative) mg/dL Urine Glucose (UA) (Negative) mg/dL Urine Ketones (Negative) mg/dL Urine Blood (Negative) Urine Nitrite (Negative) Urine Bilirubin (Negative) Urine Urobilinogen (<2.0) mg/dL Ur Leukocyte Esterase (Negative) Urine WBC (Auto) (0.0-6.0) /HPF Urine RBC (Auto) (0.0-6.0) /HPF Hyaline Casts /LPF Urine Opiates Screen Urine Methadone Screen Ur Barbiturates Screen Ur Phencyclidine Scrn Ur Amphetamines Screen U Benzodiazepines Scrn Urine Cocaine Screen U Marijuana (THC) Screen Drugs of Abuse Note Plasma/Serum Alcohol (0-0.07) % Blood Type Antibody Screen 09/02/17 09/02/17 09/02/17 Range/Units 15:20 15:20 15:20 WBC (4.5-11.0) K/mm3 RBC (3.65-5.03) M/mm3 Hgb (11.8-15.2) gm/dl Hct (35.5-45.6) % MCV (84-94) fl MCH (28-32) pg MCHC (32-34) % RDW (13.2-15.2) % Plt Count (140-440) K/mm3 Lymph % (Auto) (13.4-35.0) % [place] % (Auto) (0.0-7.3) % Eos % (Auto) (0.0-4.3) % Baso % (Auto) (0.0-1.8) % Lymph # (1.2-5.4) K/mm3 [place] # (0.0-0.8) K/mm3 Eos # (0.0-0.4) K/mm3 Baso # (0.0-0.1) K/mm3 Seg Neutrophils % (40.0-70.0) % Seg Neutrophils # (1.8-7.7) K/mm3 PT (12.2-14.9) Sec. INR (0.87-1.13) APTT (24.2-36.6) Sec. Sodium (137-145) mmol/L Potassium (3.6-5.0) mmol/L Chloride (98-107) mmol/L Carbon Dioxide (22-30) mmol/L Anion Gap mmol/L BUN (9-20) mg/dL Creatinine (0.8-1.5) mg/dL Estimated GFR ml/min BUN/Creatinine Ratio % Glucose (75-100) mg/dL POC Glucose (70-105) Calcium (8.4-10.2) mg/dL Magnesium (1.7-2.3) mg/dL Total Bilirubin (0.1-1.2) mg/dL AST (5-40) units/L ALT (7-56) units/L Alkaline Phosphatase (35-129) units/L Ammonia 146.0 H (25-60) umol/L Total Creatine Kinase (55-170) units/L CK-MB (CK-2) (0.0-4.0) ng/mL CK-MB (CK-2) Rel Index (0-4) Troponin T (0.00-0.029) ng/mL NT-Pro-B Natriuret Pep (0-900) pg/mL Total Protein (6.3-8.2) g/dL Albumin (3.9-5) g/dL Albumin/Globulin Ratio % TSH 0.587 (0.270-4.200) mlU/mL Urine Color (Yellow) Urine Turbidity (Clear) Urine pH (5.0-7.0) Ur Specific [place] (1.003-1.030) Urine Protein (Negative) mg/dL Urine Glucose (UA) (Negative) mg/dL Urine Ketones (Negative) mg/dL Urine Blood (Negative) Urine Nitrite (Negative) Urine Bilirubin (Negative) Urine Urobilinogen (<2.0) mg/dL Ur Leukocyte Esterase (Negative) Urine WBC (Auto) (0.0-6.0) /HPF Urine RBC (Auto) (0.0-6.0) /HPF Hyaline Casts /LPF Urine Opiates Screen Urine Methadone Screen Ur Barbiturates Screen Ur Phencyclidine Scrn Ur Amphetamines Screen U Benzodiazepines Scrn Urine Cocaine Screen U Marijuana (THC) Screen Drugs of Abuse Note Plasma/Serum Alcohol < 0.01 (0-0.07) % Blood Type Antibody Screen 09/02/17 09/02/17 09/02/17 Range/Units 15:20 15:20 15:20 WBC (4.5-11.0) K/mm3 RBC (3.65-5.03) M/mm3 Hgb (11.8-15.2) gm/dl Hct (35.5-45.6) % MCV (84-94) fl MCH (28-32) pg MCHC (32-34) % RDW (13.2-15.2) % Plt Count (140-440) K/mm3 Lymph % (Auto) (13.4-35.0) % [place] % (Auto) (0.0-7.3) % Eos % (Auto) (0.0-4.3) % Baso % (Auto) (0.0-1.8) % Lymph # (1.2-5.4) K/mm3 [place] # (0.0-0.8) K/mm3 Eos # (0.0-0.4) K/mm3 Baso # (0.0-0.1) K/mm3 Seg Neutrophils % (40.0-70.0) % Seg Neutrophils # (1.8-7.7) K/mm3 PT 15.8 H (12.2-14.9) Sec. INR 1.19 H (0.87-1.13) APTT 33.9 (24.2-36.6) Sec. Sodium (137-145) mmol/L Potassium (3.6-5.0) mmol/L Chloride (98-107) mmol/L Carbon Dioxide (22-30) mmol/L Anion Gap mmol/L BUN (9-20) mg/dL Creatinine (0.8-1.5) mg/dL Estimated GFR ml/min BUN/Creatinine Ratio % Glucose (75-100) mg/dL POC Glucose (70-105) Calcium (8.4-10.2) mg/dL Magnesium 2.00 (1.7-2.3) mg/dL Total Bilirubin (0.1-1.2) mg/dL AST (5-40) units/L ALT (7-56) units/L Alkaline Phosphatase (35-129) units/L Ammonia (25-60) umol/L Total Creatine Kinase 55 (55-170) units/L CK-MB (CK-2) 1.6 (0.0-4.0) ng/mL CK-MB (CK-2) Rel Index 2.9 (0-4) Troponin T < 0.010 (0.00-0.029) ng/mL NT-Pro-B Natriuret Pep 204.6 (0-900) pg/mL Total Protein (6.3-8.2) g/dL Albumin (3.9-5) g/dL Albumin/Globulin Ratio % TSH (0.270-4.200) mlU/mL Urine Color (Yellow) Urine Turbidity (Clear) Urine pH (5.0-7.0) Ur Specific [place] (1.003-1.030) Urine Protein (Negative) mg/dL Urine Glucose (UA) (Negative) mg/dL Urine Ketones (Negative) mg/dL Urine Blood (Negative) Urine Nitrite (Negative) Urine Bilirubin (Negative) Urine Urobilinogen (<2.0) mg/dL Ur Leukocyte Esterase (Negative) Urine WBC (Auto) (0.0-6.0) /HPF Urine RBC (Auto) (0.0-6.0) /HPF Hyaline Casts /LPF Urine Opiates Screen Urine Methadone Screen Ur Barbiturates Screen Ur Phencyclidine Scrn Ur Amphetamines Screen U Benzodiazepines Scrn Urine Cocaine Screen U Marijuana (THC) Screen Drugs of Abuse Note Plasma/Serum Alcohol (0-0.07) % Blood Type O POSITIVE Antibody Screen Negative 09/02/17 09/02/17 Range/Units 16:41 16:41 WBC (4.5-11.0) K/mm3 RBC (3.65-5.03) M/mm3 Hgb (11.8-15.2) gm/dl Hct (35.5-45.6) % MCV (84-94) fl MCH (28-32) pg MCHC (32-34) % RDW (13.2-15.2) % Plt Count (140-440) K/mm3 Lymph % (Auto) (13.4-35.0) % [place] % (Auto) (0.0-7.3) % Eos % (Auto) (0.0-4.3) % Baso % (Auto) (0.0-1.8) % Lymph # (1.2-5.4) K/mm3 [place] # (0.0-0.8) K/mm3 Eos # (0.0-0.4) K/mm3 Baso # (0.0-0.1) K/mm3 Seg Neutrophils % (40.0-70.0) % Seg Neutrophils # (1.8-7.7) K/mm3 PT (12.2-14.9) Sec. INR (0.87-1.13) APTT (24.2-36.6) Sec. Sodium (137-145) mmol/L Potassium (3.6-5.0) mmol/L Chloride (98-107) mmol/L Carbon Dioxide (22-30) mmol/L Anion Gap mmol/L BUN (9-20) mg/dL Creatinine (0.8-1.5) mg/dL Estimated GFR ml/min BUN/Creatinine Ratio % Glucose (75-100) mg/dL POC Glucose (70-105) Calcium (8.4-10.2) mg/dL Magnesium (1.7-2.3) mg/dL Total Bilirubin (0.1-1.2) mg/dL AST (5-40) units/L ALT (7-56) units/L Alkaline Phosphatase (35-129) units/L Ammonia (25-60) umol/L Total Creatine Kinase (55-170) units/L CK-MB (CK-2) (0.0-4.0) ng/mL CK-MB (CK-2) Rel Index (0-4) Troponin T (0.00-0.029) ng/mL NT-Pro-B Natriuret Pep (0-900) pg/mL Total Protein (6.3-8.2) g/dL Albumin (3.9-5) g/dL Albumin/Globulin Ratio % TSH (0.270-4.200) mlU/mL Urine Color Yellow (Yellow) Urine Turbidity Clear (Clear) Urine pH 8.0 H (5.0-7.0) Ur Specific [place] 1.012 (1.003-1.030) Urine Protein <15 mg/dl (Negative) mg/dL Urine Glucose (UA) Neg (Negative) mg/dL Urine Ketones Neg (Negative) mg/dL Urine Blood Neg (Negative) Urine Nitrite Neg (Negative) Urine Bilirubin Neg (Negative) Urine Urobilinogen 4.0 (<2.0) mg/dL Ur Leukocyte Esterase Neg (Negative) Urine WBC (Auto) 1.0 (0.0-6.0) /HPF Urine RBC (Auto) 1.0 (0.0-6.0) /HPF Hyaline Casts 1 /LPF Urine Opiates Screen Presumptive positive Urine Methadone Screen Presumptive positive Ur Barbiturates Screen Presumptive negative Ur Phencyclidine Scrn Presumptive negative Ur Amphetamines Screen Presumptive negative U Benzodiazepines Scrn Presumptive negative Urine Cocaine Screen Presumptive negative U Marijuana (THC) Screen Presumptive negative Drugs of Abuse Note Disclamer Plasma/Serum Alcohol (0-0.07) % Blood Type Antibody Screen - EKG Data -: EKG Interpreted by Pr EKG shows normal: sinus rhythm, axis (qrs 35), QRS complexes (108), ST-T waves ( no stem/t inf) Rate: normal (66) - Radiology Data Radiology results: report reviewed read by radiology CT Head: naf XR chest: naf - Medical Decision Making Altered mental status likely secondary to hepatic encephalopathy and intermittent compliance with lactulose. Lactulose reinitiated in the ED. Hospitalist informed of the admission. GI consulted - Differential Diagnosis CVA, encephalopathy, elevated ammonia Critical Care Time: No Critical care attestation.: If time is entered above; I have spent that time in minutes in the direct care of this critically ill patient, excluding procedure time. ED Disposition Clinical Impression: Cirrhosis, Hepatic encephalopathy, Hyperammonemia Disposition: DC-09 OP ADMIT IP TO THIS HOSP Is pt being admited?: Yes Condition: Stable Time of Disposition: 16:57 (hospitalist/Kath)
[2017-09-02 17:00] LABS: Amphetamine Screen,Urine PRESUMPTIVE NEGATIVE; Benzodiazepines Screen,Urine PRESUMPTIVE NEGATIVE; Cannabinoid Screen,Urine PRESUMPTIVE NEGATIVE; Cocaine Screen,Urine PRESUMPTIVE NEGATIVE
[2017-09-02 17:17] LABS: Methadone Screen,Urine PRESUMPTIVE POSITIVE; Opiate Screen,Urine PRESUMPTIVE POSITIVE
[2017-09-02] MEDS ORDERED: XANAX PO PRN (22:44)
--- NOTE | 2017-09-02 22:44 | History and Physical Report ---
History of Present Illness Date of examination: 09/02/17 Date of admission: 09/02/17 17:16 Chief complaint: 09/02/17 History of present illness: History of Present Illness 57-year-old male with a past medical history of liver cirrhosis sec to Hep C , diabetes, and hypertension presents to the hospital for altered mental status for the past 5 days. Last week patient had a Tipps procedure performed at [place]. He has been intermittently compliant with his lactulose. Mental status continued to worsen and therefore patient presented to the ED with his . Patient is alert, oriented to self only. Able to follow commands with no focal complaints of pain complaints. Past Medical History Previous Medical History?: Yes Hx Hypertension: Yes Hx Diabetes: Yes Hx Liver Disease: Yes (cirrhosis) - Surgical History Past Surgical History?: Yes Additional Surgical History: TIPs procedure performed 08/24/17 at [facility], [place] - Social History Smoking Status: Former Smoker Substance Use Type: None Family History Htn - Medications Home Medications: Home Medications Medication Instructions Recorded Confirmed Last Taken Type ALPRAZolam [Xanax TAB] 1 mg PO TID PRN 02/15/15 07/26/17 07/25/17 History 1mg Furosemide [Lasix TAB] 40 mg PO QDAY 06/18/15 07/26/17 07/26/17 06:30 History 40mg Propranolol [Inderal] 10 mg PO BID 06/18/15 07/26/17 07/26/17 06:30 History 10mg Spironolactone [Aldactone] 100 mg PO BID 06/18/15 07/26/17 07/26/17 06:30 History 100mg Lactulose 10 gram PO TID 02/03/16 07/26/17 07/26/17 06:30 History 10gram Rifaximin [Xifaxan] 550 mg PO BID 02/23/17 07/26/17 07/26/17 06:30 History 550mg Methadone [Dolophine] 10 mg PO BID 07/26/17 07/26/17 07/26/17 06:30 History 10mg Morphine Sulfate [Morphine Sulfate 15 mg PO DAILY 07/26/17 07/26/17 07/26/17 06: 30 History IR] 15mg Medications and Allergies Allergies Allergy/AdvReac Type Severity Reaction Status Date / Time NSAIDS (Non-Steroidal Allergy Mild Bleeding Verified 04/05/17 11:19 Anti-Inflamma ulcer acetaminophen [From Tylenol] Allergy Nausea Verified 01/29/17 11:19 Home Medications Medication Instructions Recorded Confirmed Last Taken Type ALPRAZolam [Xanax TAB] 1 mg PO TID PRN 02/15/15 07/26/17 07/25/17 History 1mg Furosemide [Lasix TAB] 40 mg PO QDAY 06/18/15 07/26/17 07/26/17 06:30 History 40mg Propranolol [Inderal] 10 mg PO BID 06/18/15 07/26/17 07/26/17 06:30 History 10mg Spironolactone [Aldactone] 100 mg PO BID 06/18/15 07/26/17 07/26/17 06:30 History 100mg Lactulose 10 gram PO TID 02/03/16 07/26/17 07/26/17 06:30 History 10gram Rifaximin [Xifaxan] 550 mg PO BID 02/23/17 07/26/17 07/26/17 06:30 History 550mg Methadone [Dolophine] 10 mg PO BID 07/26/17 07/26/17 07/26/17 06:30 History 10mg Morphine Sulfate [Morphine Sulfate 15 mg PO DAILY 07/26/17 07/26/17 07/26/17 06: 30 History IR] 15mg Review of Systems All systems: negative Constitutional: no weight loss, no weight gain, no fever, no chills, no sweats, no night sweats Ears, nose, mouth and throat: no hoarseness, no sore throat, no swelling in mouth, no swelling in throat, no odynophagia Cardiovascular: no chest pain, no orthopnea, no palpitations, no rapid/ irregular heart beat, no edema, no syncope Respiratory: no cough, no cough with sputum, no excessive sputum, no hemoptysis , no shortness of breath, no dyspnea on exertion Gastrointestinal: no abdominal pain, no nausea, no vomiting, no diarrhea, no constipation, no change in bowel habits, no hematemesis, no coffee ground emesis Genitourinary Male: no dysuria, no hematuria, no flank pain, no discharge, no urinary frequency, no urinary hesitancy, no nocturia Rectal: no pain Musculoskeletal: no neck stiffness, no neck pain, no shooting arm pain, no arm numbness/tingling, no low back pain, no shooting leg pain, no leg numbness/ tingling, no redness of joints Integumentary: no rash, no pruritis, no redness, no sores, no wounds, no jaundice, no boils Neurological: change in mentation, confusion, no head injury, no seizures, no syncope Psychiatric: no anxiety, no memory loss, no change in sleep habits, no sleep disturbances Endocrine: no cold intolerance, no heat intolerance, no polyphagia, no excessive thirst, no polydipsia Hematologic/Lymphatic: no easy bruising, no easy bleeding Allergic/Immunologic: no urticaria, no allergic rhinitis, no wheezing Exam - Constitutional Vitals: Temp Pulse Resp BP Pulse Ox 98.8 F 63 18 132/69 09/02/17 21:58 09/02/17 21:58 09/02/17 21:58 09/02/17 21:58 General appearance: Present: no acute distress, well-nourished - EENT Eyes: Present: PERRL ENT: hearing intact, clear oral mucosa - Neck Neck: Present: supple, normal ROM - Respiratory Respiratory effort: normal Respiratory: bilateral: CTA - Cardiovascular Heart rate: 80 Rhythm: regular Heart Sounds: Present: S1 & S2. Absent: rub, click - Extremities Extremities: no ischemia, pulses intact, pulses symmetrical, No edema Peripheral Pulses: within normal limits - Abdominal General gastrointestinal: Present: soft, non-tender, non-distended, normal bowel sounds Male genitourinary: Present: normal - Rectal Rectal Exam: deferred - Integumentary Integumentary: Present: clear, warm, dry - Musculoskeletal Musculoskeletal: gait normal, strength equal bilaterally - Psychiatric Psychiatric: appropriate mood/affect, intact judgment & insight - Neurologic Neurologic: CNII-XII intact, moves all extremities - Allied Health Allied health notes reviewed: nursing, case management Results - Labs CBC & Chem 7: 09/02/17 15:20 09/02/17 15:20 Labs: Laboratory Last Values WBC 6.3 K/mm3 (4.5-11.0) 09/02/17 15:20 RBC 4.57 M/mm3 (3.65-5.03) 09/02/17 15:20 Hgb 13.2 gm/dl (11.8-15.2) 09/02/17 15:20 Hct 38.6 % (35.5-45.6) 09/02/17 15:20 MCV 85 fl (84-94) 09/02/17 15:20 MCH 29 pg (28-32) 09/02/17 15:20 MCHC 34 % (32-34) 09/02/17 15:20 RDW 16.1 % (13.2-15.2) H 09/02/17 15:20 Plt Count 135 K/mm3 (140-440) L 09/02/17 15:20 Lymph % (Auto) 14.2 % (13.4-35.0) 09/02/17 15:20 [place] % (Auto) 13.8 % (0.0-7.3) H 09/02/17 15:20 Eos % (Auto) 3.5 % (0.0-4.3) 09/02/17 15:20 Baso % (Auto) 1.0 % (0.0-1.8) 09/02/17 15:20 Lymph # 0.9 K/mm3 (1.2-5.4) L 09/02/17 15:20 [place] # 0.9 K/mm3 (0.0-0.8) H 09/02/17 15:20 Eos # 0.2 K/mm3 (0.0-0.4) 09/02/17 15:20 Baso # 0.1 K/mm3 (0.0-0.1) 09/02/17 15:20 Seg Neutrophils % 67.5 % (40.0-70.0) 09/02/17 15:20 Seg Neutrophils # 4.2 K/mm3 (1.8-7.7) 09/02/17 15:20 PT 15.8 Sec. (12.2-14.9) H 09/02/17 15:20 INR 1.19 (0.87-1.13) H 09/02/17 15:20 APTT 33.9 Sec. (24.2-36.6) 09/02/17 15:20 Sodium 130 mmol/L (137-145) L 09/02/17 15:20 Potassium 4.6 mmol/L (3.6-5.0) 09/02/17 15:20 Chloride 90.7 mmol/L (98-107) L 09/02/17 15:20 Carbon Dioxide 25 mmol/L (22-30) 09/02/17 15:20 Anion Gap 19 mmol/L 09/02/17 15:20 BUN 9 mg/dL (9-20) 09/02/17 15:20 Creatinine 0.7 mg/dL (0.8-1.5) L 09/02/17 15:20 Estimated GFR > 60 ml/min 09/02/17 15:20 BUN/Creatinine Ratio 13 % 09/02/17 15:20 Glucose 125 mg/dL (75-100) H 09/02/17 15:20 POC Glucose 135 (70-105) H 09/02/17 14:32 Calcium 10.0 mg/dL (8.4-10.2) 09/02/17 15:20 Magnesium 2.00 mg/dL (1.7-2.3) 09/02/17 15:20 Total Bilirubin 2.20 mg/dL (0.1-1.2) H 09/02/17 15:20 AST 35 units/L (5-40) 09/02/17 15:20 ALT 15 units/L (7-56) 09/02/17 15:20 Alkaline Phosphatase 124 units/L (35-129) 09/02/17 15:20 Ammonia 146.0 umol/L (25-60) H 09/02/17 15:20 Total Creatine Kinase 55 units/L (55-170) 09/02/17 15:20 CK-MB (CK-2) 1.6 ng/mL (0.0-4.0) 09/02/17 15:20 CK-MB (CK-2) Rel Index 2.9 (0-4) 09/02/17 15:20 Troponin T < 0.010 ng/mL (0.00-0.029) 09/02/17 15:20 NT-Pro-B Natriuret Pep 204.6 pg/mL (0-900) 09/02/17 15:20 Total Protein 7.0 g/dL (6.3-8.2) 09/02/17 15:20 Albumin 3.9 g/dL (3.9-5) 09/02/17 15:20 Albumin/Globulin Ratio 1.3 % 09/02/17 15:20 TSH 0.587 mlU/mL (0.270-4.200) 09/02/17 15:20 Urine Color Yellow (Yellow) 09/02/17 16:41 Urine Turbidity Clear (Clear) 09/02/17 16:41 Urine pH 8.0 (5.0-7.0) H 09/02/17 16:41 Ur Specific [place] 1.012 (1.003-1.030) 09/02/17 16:41 Urine Protein <15 mg/dl mg/dL (Negative) 09/02/17 16:41 Urine Glucose (UA) Neg mg/dL (Negative) 09/02/17 16:41 Urine Ketones Neg mg/dL (Negative) 09/02/17 16:41 Urine Blood Neg (Negative) 09/02/17 16:41 Urine Nitrite Neg (Negative) 09/02/17 16:41 Urine Bilirubin Neg (Negative) 09/02/17 16:41 Urine Urobilinogen 4.0 mg/dL (<2.0) 09/02/17 16:41 Ur Leukocyte Esterase Neg (Negative) 09/02/17 16:41 Urine WBC (Auto) 1.0 /HPF (0.0-6.0) 09/02/17 16:41 Urine RBC (Auto) 1.0 /HPF (0.0-6.0) 09/02/17 16:41 Hyaline Casts 1 /LPF 09/02/17 16:41 Urine Opiates Screen Presumptive positive 09/02/17 16:41 Urine Methadone Screen Presumptive positive 09/02/17 16:41 Ur Barbiturates Screen Presumptive negative 09/02/17 16:41 Ur Phencyclidine Scrn Presumptive negative 09/02/17 16:41 Ur Amphetamines Screen Presumptive negative 09/02/17 16:41 U Benzodiazepines Scrn Presumptive negative 09/02/17 16:41 Urine Cocaine Screen Presumptive negative 09/02/17 16:41 U Marijuana (THC) Screen Presumptive negative 09/02/17 16:41 Drugs of Abuse Note Disclamer 09/02/17 16:41 Plasma/Serum Alcohol < 0.01 % (0-0.07) 09/02/17 15:20 Blood Type O POSITIVE 09/02/17 15:20 Antibody Screen Negative 09/02/17 15:20 - Imaging and Cardiology EKG: report reviewed (NSR 66/min no acute changes) Assessment and Plan Advance Directives: Yes (Full code) VTE prophylaxis?: Chemical Plan of care discussed with patient/family: Yes - Patient Problems (1) Hepatic encephalopathy Current Visit: Yes Status: Acute Plan to address problem: Lactulose increased from 10 to 30 gm q8 and cont Rifaximin 550 bid. GI consult requested . (2) Hyperammonemia Current Visit: Yes Status: Acute Plan to address problem: Sec to Liver failure <Monitor Ammonia level Lactulose adjusted (3) Portal hypertension Current Visit: No Status: Chronic Plan to address problem: Had TIPS .Cont spironolactone (4) T2DM (type 2 diabetes mellitus) Current Visit: Yes Status: Chronic Qualifiers: Diabetes mellitus custodial insulin use: without non destructive testing specialist use Plan to address problem: Cont coverage (5) Chronic pain Current Visit: Yes Status: Chronic Qualifiers: Chronic pain type: other chronic pain Qualified Code(s): G89.29 - Other chronic pain Plan to address problem: Cont MethadoneMorphine kept on Hold. Will defer to Hospitalist team/GI to restart MS (6) DVT prophylaxis Current Visit: Yes Status: Acute Plan to address problem: On ScD's
[2017-09-02] MEDS ORDERED: LACTULOSE 30 GM PO SCH (22:45)
[2017-09-03] MEDS: CEPHULAC PO SCH ×3 (03:07→14:16)
[2017-09-03] MEDS: XIFAXAN PO SCH ×2 (03:08→10:16)
[2017-09-03] MEDS: HumaLOG SUB-Q SCH ×4 (08:12→23:16)
--- NOTE | 2017-09-03 09:16 | Progress Note ---
<LEVI JONES - Last Filed: 09/03/17 10:50> Assessment and Plan Assessment and plan: 57-year-old male with a past medical history of liver cirrhosis sec to Hep C , diabetes, and hypertension presents to the hospital for altered mental status for the past 5 days prior to admission Hepatic encephalopathy Mentation is improving today, cont Lactulose 30 gm q8 and Rifaximin 550 bid. GI following Hyperammonemia Sec to Liver failure Will continue to monitor Ammonia level-trending down ,105 today from 146 Continue Lactulose Portal hypertension Had TIPS, Cont spironolactone T2DM (type 2 diabetes mellitus) ADA diet, SSI, Accu cheks ACHS Chronic pain Cont Methadone, Morphine kept on Hold DVT prophylaxis On ScD's History Interval history: Patient seen and examined. Alert and oriented X2, NAD, denies any pain, NV, SOB. Labs and nursing notes reviewed. Hospitalist Physical - Constitutional Vitals: Temp Pulse Resp BP Pulse Ox 98.8 F 63 18 132/69 09/02/17 21:58 09/02/17 21:58 09/02/17 22:00 09/02/17 21:58 General appearance: Present: no acute distress, well-nourished - EENT Eyes: Present: PERRL, EOM intact ENT: hearing intact, clear oral mucosa - Neck Neck: Present: supple, normal ROM - Respiratory Respiratory effort: normal Respiratory: bilateral: CTA - Cardiovascular Rhythm: regular Heart Sounds: Present: S1 & S2 - Extremities Extremities: no ischemia, No edema - Abdominal General gastrointestinal: soft, non-tender, non-distended - Integumentary Integumentary: Present: clear, warm, dry - Psychiatric Psychiatric: appropriate mood/affect, intact judgment & insight, cooperative - Neurologic Neurologic: CNII-XII intact, moves all extremities - Allied Health Allied health notes reviewed: nursing Results - Labs CBC & Chem 7: 09/02/17 15:20 09/02/17 15:20 Labs: Laboratory Last Values WBC 6.3 K/mm3 (4.5-11.0) 09/02/17 15:20 RBC 4.57 M/mm3 (3.65-5.03) 09/02/17 15:20 Hgb 13.2 gm/dl (11.8-15.2) 09/02/17 15:20 Hct 38.6 % (35.5-45.6) 09/02/17 15:20 MCV 85 fl (84-94) 09/02/17 15:20 MCH 29 pg (28-32) 09/02/17 15:20 MCHC 34 % (32-34) 09/02/17 15:20 RDW 16.1 % (13.2-15.2) H 09/02/17 15:20 Plt Count 135 K/mm3 (140-440) L 09/02/17 15:20 Lymph % (Auto) 14.2 % (13.4-35.0) 09/02/17 15:20 [place] % (Auto) 13.8 % (0.0-7.3) H 09/02/17 15:20 Eos % (Auto) 3.5 % (0.0-4.3) 09/02/17 15:20 Baso % (Auto) 1.0 % (0.0-1.8) 09/02/17 15:20 Lymph # 0.9 K/mm3 (1.2-5.4) L 09/02/17 15:20 [place] # 0.9 K/mm3 (0.0-0.8) H 09/02/17 15:20 Eos # 0.2 K/mm3 (0.0-0.4) 09/02/17 15:20 Baso # 0.1 K/mm3 (0.0-0.1) 09/02/17 15:20 Seg Neutrophils % 67.5 % (40.0-70.0) 09/02/17 15:20 Seg Neutrophils # 4.2 K/mm3 (1.8-7.7) 09/02/17 15:20 PT 15.8 Sec. (12.2-14.9) H 09/02/17 15:20 INR 1.19 (0.87-1.13) H 09/02/17 15:20 APTT 33.9 Sec. (24.2-36.6) 09/02/17 15:20 Sodium 130 mmol/L (137-145) L 09/02/17 15:20 Potassium 4.6 mmol/L (3.6-5.0) 09/02/17 15:20 Chloride 90.7 mmol/L (98-107) L 09/02/17 15:20 Carbon Dioxide 25 mmol/L (22-30) 09/02/17 15:20 Anion Gap 19 mmol/L 09/02/17 15:20 BUN 9 mg/dL (9-20) 09/02/17 15:20 Creatinine 0.7 mg/dL (0.8-1.5) L 09/02/17 15:20 Estimated GFR > 60 ml/min 09/02/17 15:20 BUN/Creatinine Ratio 13 % 09/02/17 15:20 Glucose 125 mg/dL (75-100) H 09/02/17 15:20 POC Glucose 71 (70-105) 09/03/17 06:39 Calcium 10.0 mg/dL (8.4-10.2) 09/02/17 15:20 Magnesium 2.00 mg/dL (1.7-2.3) 09/02/17 15:20 Total Bilirubin 2.20 mg/dL (0.1-1.2) H 09/02/17 15:20 AST 35 units/L (5-40) 09/02/17 15:20 ALT 15 units/L (7-56) 09/02/17 15:20 Alkaline Phosphatase 124 units/L (35-129) 09/02/17 15:20 Ammonia 105.0 umol/L (25-60) H 09/03/17 08:06 Total Creatine Kinase 55 units/L (55-170) 09/02/17 15:20 CK-MB (CK-2) 1.6 ng/mL (0.0-4.0) 09/02/17 15:20 CK-MB (CK-2) Rel Index 2.9 (0-4) 09/02/17 15:20 Troponin T < 0.010 ng/mL (0.00-0.029) 09/02/17 15:20 NT-Pro-B Natriuret Pep 204.6 pg/mL (0-900) 09/02/17 15:20 Total Protein 7.0 g/dL (6.3-8.2) 09/02/17 15:20 Albumin 3.9 g/dL (3.9-5) 09/02/17 15:20 Albumin/Globulin Ratio 1.3 % 09/02/17 15:20 TSH 0.587 mlU/mL (0.270-4.200) 09/02/17 15:20 Urine Color Yellow (Yellow) 09/02/17 16:41 Urine Turbidity Clear (Clear) 09/02/17 16:41 Urine pH 8.0 (5.0-7.0) H 09/02/17 16:41 Ur Specific [place] 1.012 (1.003-1.030) 09/02/17 16:41 Urine Protein <15 mg/dl mg/dL (Negative) 09/02/17 16:41 Urine Glucose (UA) Neg mg/dL (Negative) 09/02/17 16:41 Urine Ketones Neg mg/dL (Negative) 09/02/17 16:41 Urine Blood Neg (Negative) 09/02/17 16:41 Urine Nitrite Neg (Negative) 09/02/17 16:41 Urine Bilirubin Neg (Negative) 09/02/17 16:41 Urine Urobilinogen 4.0 mg/dL (<2.0) 09/02/17 16:41 Ur Leukocyte Esterase Neg (Negative) 09/02/17 16:41 Urine WBC (Auto) 1.0 /HPF (0.0-6.0) 09/02/17 16:41 Urine RBC (Auto) 1.0 /HPF (0.0-6.0) 09/02/17 16:41 Hyaline Casts 1 /LPF 09/02/17 16:41 Urine Opiates Screen Presumptive positive 09/02/17 16:41 Urine Methadone Screen Presumptive positive 09/02/17 16:41 Ur Barbiturates Screen Presumptive negative 09/02/17 16:41 Ur Phencyclidine Scrn Presumptive negative 09/02/17 16:41 Ur Amphetamines Screen Presumptive negative 09/02/17 16:41 U Benzodiazepines Scrn Presumptive negative 09/02/17 16:41 Urine Cocaine Screen Presumptive negative 09/02/17 16:41 U Marijuana (THC) Screen Presumptive negative 09/02/17 16:41 Drugs of Abuse Note Disclamer 09/02/17 16:41 Plasma/Serum Alcohol < 0.01 % (0-0.07) 09/02/17 15:20 Blood Type O POSITIVE 09/02/17 15:20 Antibody Screen Negative 09/02/17 15:20 <[email or web address] Ethel - Last Filed: 09/03/17 17:09> Assessment and Plan Assessment and plan: I personally evaluated and examined the pt in conjunction with the PA. I agree with her documentations History Interval history: I personally evaluated and examined the patioent in conjunction with the PA, i agrre with her documentations Hospitalist Physical - Constitutional Vitals: Temp Pulse Resp BP Pulse Ox 98.0 F 64 20 119/54 95 09/03/17 08:26 09/03/17 08:26 09/03/17 08:26 09/03/17 08:26 09/03/17 08:26 Results - Labs CBC & Chem 7: 09/02/17 15:20 09/03/17 11:02 Labs: Laboratory Last Values WBC 6.3 K/mm3 (4.5-11.0) 09/02/17 15:20 RBC 4.57 M/mm3 (3.65-5.03) 09/02/17 15:20 Hgb 13.2 gm/dl (11.8-15.2) 09/02/17 15:20 Hct 38.6 % (35.5-45.6) 09/02/17 15:20 MCV 85 fl (84-94) 09/02/17 15:20 MCH 29 pg (28-32) 09/02/17 15:20 MCHC 34 % (32-34) 09/02/17 15:20 RDW 16.1 % (13.2-15.2) H 09/02/17 15:20 Plt Count 135 K/mm3 (140-440) L 09/02/17 15:20 Lymph % (Auto) 14.2 % (13.4-35.0) 09/02/17 15:20 [place] % (Auto) 13.8 % (0.0-7.3) H 09/02/17 15:20 Eos % (Auto) 3.5 % (0.0-4.3) 09/02/17 15:20 Baso % (Auto) 1.0 % (0.0-1.8) 09/02/17 15:20 Lymph # 0.9 K/mm3 (1.2-5.4) L 09/02/17 15:20 [place] # 0.9 K/mm3 (0.0-0.8) H 09/02/17 15:20 Eos # 0.2 K/mm3 (0.0-0.4) 09/02/17 15:20 Baso # 0.1 K/mm3 (0.0-0.1) 09/02/17 15:20 Seg Neutrophils % 67.5 % (40.0-70.0) 09/02/17 15:20 Seg Neutrophils # 4.2 K/mm3 (1.8-7.7) 09/02/17 15:20 PT 15.8 Sec. (12.2-14.9) H 09/02/17 15:20 INR 1.19 (0.87-1.13) H 09/02/17 15:20 APTT 33.9 Sec. (24.2-36.6) 09/02/17 15:20 Sodium 131 mmol/L (137-145) L 09/03/17 11:02 Potassium 4.3 mmol/L (3.6-5.0) 09/03/17 11:02 Chloride 93.5 mmol/L (98-107) L 09/03/17 11:02 Carbon Dioxide 22 mmol/L (22-30) 09/03/17 11:02 Anion Gap 20 mmol/L 09/03/17 11:02 BUN 10 mg/dL (9-20) 09/03/17 11:02 Creatinine 0.6 mg/dL (0.8-1.5) L 09/03/17 11:02 Estimated GFR > 60 ml/min 09/03/17 11:02 BUN/Creatinine Ratio 17 % 09/03/17 11:02 Glucose 175 mg/dL (75-100) H 09/03/17 11:02 POC Glucose 128 (70-105) H 09/03/17 16:35 Calcium 9.3 mg/dL (8.4-10.2) 09/03/17 11:02 Magnesium 2.00 mg/dL (1.7-2.3) 09/02/17 15:20 Total Bilirubin 2.20 mg/dL (0.1-1.2) H 09/02/17 15:20 AST 35 units/L (5-40) 09/02/17 15:20 ALT 15 units/L (7-56) 09/02/17 15:20 Alkaline Phosphatase 124 units/L (35-129) 09/02/17 15:20 Ammonia 105.0 umol/L (25-60) H 09/03/17 08:06 Total Creatine Kinase 55 units/L (55-170) 09/02/17 15:20 CK-MB (CK-2) 1.6 ng/mL (0.0-4.0) 09/02/17 15:20 CK-MB (CK-2) Rel Index 2.9 (0-4) 09/02/17 15:20 Troponin T < 0.010 ng/mL (0.00-0.029) 09/02/17 15:20 NT-Pro-B Natriuret Pep 204.6 pg/mL (0-900) 09/02/17 15:20 Total Protein 7.0 g/dL (6.3-8.2) 09/02/17 15:20 Albumin 3.9 g/dL (3.9-5) 09/02/17 15:20 Albumin/Globulin Ratio 1.3 % 09/02/17 15:20 TSH 0.587 mlU/mL (0.270-4.200) 09/02/17 15:20 Urine Color Yellow (Yellow) 09/02/17 16:41 Urine Turbidity Clear (Clear) 09/02/17 16:41 Urine pH 8.0 (5.0-7.0) H 09/02/17 16:41 Ur Specific [place] 1.012 (1.003-1.030) 09/02/17 16:41 Urine Protein <15 mg/dl mg/dL (Negative) 09/02/17 16:41 Urine Glucose (UA) Neg mg/dL (Negative) 09/02/17 16:41 Urine Ketones Neg mg/dL (Negative) 09/02/17 16:41 Urine Blood Neg (Negative) 09/02/17 16:41 Urine Nitrite Neg (Negative) 09/02/17 16:41 Urine Bilirubin Neg (Negative) 09/02/17 16:41 Urine Urobilinogen 4.0 mg/dL (<2.0) 09/02/17 16:41 Ur Leukocyte Esterase Neg (Negative) 09/02/17 16:41 Urine WBC (Auto) 1.0 /HPF (0.0-6.0) 09/02/17 16:41 Urine RBC (Auto) 1.0 /HPF (0.0-6.0) 09/02/17 16:41 Hyaline Casts 1 /LPF 09/02/17 16:41 Urine Opiates Screen Presumptive positive 09/02/17 16:41 Urine Methadone Screen Presumptive positive 09/02/17 16:41 Ur Barbiturates Screen Presumptive negative 09/02/17 16:41 Ur Phencyclidine Scrn Presumptive negative 09/02/17 16:41 Ur Amphetamines Screen Presumptive negative 09/02/17 16:41 U Benzodiazepines Scrn Presumptive negative 09/02/17 16:41 Urine Cocaine Screen Presumptive negative 09/02/17 16:41 U Marijuana (THC) Screen Presumptive negative 09/02/17 16:41 Drugs of Abuse Note Disclamer 09/02/17 16:41 Plasma/Serum Alcohol < 0.01 % (0-0.07) 09/02/17 15:20 Blood Type O POSITIVE 09/02/17 15:20 Antibody Screen Negative 09/02/17 15:20
[2017-09-03] MEDS ORDERED: NON-FORMULARY (Spironolactone [Aldactone] 100 MG) PO SCH (10:00)
[2017-09-03] MEDS: ALDACTONE PO SCH (10:14)
[2017-09-03] MEDS: DOLOPHINE PO SCH (10:15)
[2017-09-03] MEDS: INDERAL PO SCH (10:15)
[2017-09-03] MEDS: LASIX PO SCH (10:16)
--- NOTE | 2017-09-03 10:17 | Gastroenterology Consultation ---
<CHRIS PAPPAS - Last Filed: 09/03/17 10:02> History of Present Illness - Reason for Consult Consult date: 09/03/17 cirrhosis, hepatic enchephalopathy Requesting physician: ANDREAS ROBERTSON - History of Present Illness Patient is a 57 y/o male who is well known to our service. He has a PMH of DM, HTN, and cirrhosis 2/2 hepatitis C (previously treated with VL undetectable 2016) with associated ascites and esophageal varices (last EGD 07/2016 with esophageal banding). He presented to ED with AMS x 5 days following a recent TIPS procedure at [facility] on 08/24/2017. Ammonia level was found to be elevated on admission due to patient only being intermittently compliant with taking his lactulose. This morning pt was resting in bed w/o acute distress and at bedside. Patient's mentation is improving per . He is now alert and oriented to person and place. Denies abd pain, N/V, jaundice, wt loss, or signs of bleeding. Past History Past Medical History: diabetes, hypertension, liver disease (cirrhosis 2/2 hepatitis C ) Past Surgical History: Other (esophageal banding 07/2016, TIPS procedure 2017 at [facility]) Social history: other (former smoker) Family history: hypertension Medications and Allergies Allergies Allergy/AdvReac Type Severity Reaction Status Date / Time NSAIDS (Non-Steroidal Allergy Mild Bleeding Verified 04/05/17 11:19 Anti-Inflamma ulcer acetaminophen [From Tylenol] Allergy Nausea Verified 01/29/17 11:19 Home Medications Medication Instructions Recorded Confirmed Last Taken Type ALPRAZolam [Xanax TAB] 1 mg PO TID PRN 02/15/15 07/26/17 07/25/17 History 1mg Furosemide [Lasix TAB] 40 mg PO QDAY 06/18/15 07/26/17 07/26/17 06:30 History 40mg Propranolol [Inderal] 10 mg PO BID 06/18/15 07/26/17 07/26/17 06:30 History 10mg Spironolactone [Aldactone] 100 mg PO BID 06/18/15 07/26/17 07/26/17 06:30 History 100mg Lactulose 10 gram PO TID 02/03/16 07/26/17 07/26/17 06:30 History 10gram Rifaximin [Xifaxan] 550 mg PO BID 02/23/17 07/26/17 07/26/17 06:30 History 550mg Methadone [Dolophine] 10 mg PO BID 07/26/17 07/26/17 07/26/17 06:30 History 10mg Morphine Sulfate [Morphine Sulfate 15 mg PO DAILY 07/26/17 07/26/17 07/26/17 06: 30 History IR] 15mg Active Meds: Active Medications Alprazolam (Xanax) 1 mg PO TID PRN PRN Reason: Anxiety Furosemide (Lasix) 40 mg PO QDAY [facility] Insulin Human Lispro (Humalog) 0 unit SUB-Q ACHS [facility]; Protocol Lactulose (Cephulac) 30 gm PO Q8HR [facility] Last Admin: 09/03/17 06:13 Dose: 30 gm Methadone HCl (Dolophine) 10 mg PO BID [facility] Propranolol HCl (Inderal) 10 mg PO BID [facility] Rifaximin (Xifaxan) 550 mg PO BID [facility] Last Admin: 09/03/17 03:08 Dose: Not Given Spironolactone (Aldactone) 100 mg PO BID [facility] Review of Systems - Review of Systems All systems: negative Psychiatric: other (AMS) Exam - Constitutional Vital Signs: Temp Pulse Resp BP Pulse Ox 98.8 F 63 18 132/69 09/02/17 21:58 09/02/17 21:58 09/02/17 22:00 09/02/17 21:58 General appearance: no acute distress, well-nourished - EENT Eyes: PERRL, EOM intact ENT: hearing intact - Respiratory Respiratory: bilateral: CTA - Cardiovascular Rhythm: regular Heart Sounds: Present: S1 & S2 - Gastrointestinal General gastrointestinal: Present: soft, non-tender, non-distended, normal bowel sounds - Integumentary Integumentary: Present: warm, dry - Neurologic Neurological: oriented to person, oriented to place - Labs CBC & Chem 7: 09/02/17 15:20 09/02/17 15:20 Lab Results: Laboratory Results - last 24 hr 09/02/17 09/02/17 09/02/17 14:32 15:20 15:20 WBC 6.3 RBC 4.57 Hgb 13.2 Hct 38.6 MCV 85 MCH 29 MCHC 34 RDW 16.1 H Plt Count 135 L Lymph % (Auto) 14.2 [place] % (Auto) 13.8 H Eos % (Auto) 3.5 Baso % (Auto) 1.0 Lymph # 0.9 L [place] # 0.9 H Eos # 0.2 Baso # 0.1 Seg Neutrophils % 67.5 Seg Neutrophils # 4.2 PT INR APTT Sodium 130 L Potassium 4.6 Chloride 90.7 L Carbon Dioxide 25 Anion Gap 19 BUN 9 Creatinine 0.7 L Estimated GFR > 60 BUN/Creatinine Ratio 13 Glucose 125 H POC Glucose 135 H Calcium 10.0 Magnesium Total Bilirubin 2.20 H AST 35 ALT 15 Alkaline Phosphatase 124 Ammonia Total Creatine Kinase CK-MB (CK-2) CK-MB (CK-2) Rel Index Troponin T NT-Pro-B Natriuret Pep Total Protein 7.0 Albumin 3.9 Albumin/Globulin Ratio 1.3 TSH Urine Color Urine Turbidity Urine pH Ur Specific [place] Urine Protein Urine Glucose (UA) Urine Ketones Urine Blood Urine Nitrite Urine Bilirubin Urine Urobilinogen Ur Leukocyte Esterase Urine WBC (Auto) Urine RBC (Auto) Hyaline Casts Urine Opiates Screen Urine Methadone Screen Ur Barbiturates Screen Ur Phencyclidine Scrn Ur Amphetamines Screen U Benzodiazepines Scrn Urine Cocaine Screen U Marijuana (THC) Screen Drugs of Abuse Note Plasma/Serum Alcohol Blood Type Antibody Screen 09/02/17 09/02/17 09/02/17 15:20 15:20 15:20 WBC RBC Hgb Hct MCV MCH MCHC RDW Plt Count Lymph % (Auto) [place] % (Auto) Eos % (Auto) Baso % (Auto) Lymph # [place] # Eos # Baso # Seg Neutrophils % Seg Neutrophils # PT INR APTT Sodium Potassium Chloride Carbon Dioxide Anion Gap BUN Creatinine Estimated GFR BUN/Creatinine Ratio Glucose POC Glucose Calcium Magnesium Total Bilirubin AST ALT Alkaline Phosphatase Ammonia 146.0 H Total Creatine Kinase CK-MB (CK-2) CK-MB (CK-2) Rel Index Troponin T NT-Pro-B Natriuret Pep Total Protein Albumin Albumin/Globulin Ratio TSH 0.587 Urine Color Urine Turbidity Urine pH Ur Specific [place] Urine Protein Urine Glucose (UA) Urine Ketones Urine Blood Urine Nitrite Urine Bilirubin Urine Urobilinogen Ur Leukocyte Esterase Urine WBC (Auto) Urine RBC (Auto) Hyaline Casts Urine Opiates Screen Urine Methadone Screen Ur Barbiturates Screen Ur Phencyclidine Scrn Ur Amphetamines Screen U Benzodiazepines Scrn Urine Cocaine Screen U Marijuana (THC) Screen Drugs of Abuse Note Plasma/Serum Alcohol < 0.01 Blood Type Antibody Screen 09/02/17 09/02/17 09/02/17 15:20 15:20 15:20 WBC RBC Hgb Hct MCV MCH MCHC RDW Plt Count Lymph % (Auto) [place] % (Auto) Eos % (Auto) Baso % (Auto) Lymph # [place] # Eos # Baso # Seg Neutrophils % Seg Neutrophils # PT 15.8 H INR 1.19 H APTT 33.9 Sodium Potassium Chloride Carbon Dioxide Anion Gap BUN Creatinine Estimated GFR BUN/Creatinine Ratio Glucose POC Glucose Calcium Magnesium 2.00 Total Bilirubin AST ALT Alkaline Phosphatase Ammonia Total Creatine Kinase 55 CK-MB (CK-2) 1.6 CK-MB (CK-2) Rel Index 2.9 Troponin T < 0.010 NT-Pro-B Natriuret Pep 204.6 Total Protein Albumin Albumin/Globulin Ratio TSH Urine Color Urine Turbidity Urine pH Ur Specific [place] Urine Protein Urine Glucose (UA) Urine Ketones Urine Blood Urine Nitrite Urine Bilirubin Urine Urobilinogen Ur Leukocyte Esterase Urine WBC (Auto) Urine RBC (Auto) Hyaline Casts Urine Opiates Screen Urine Methadone Screen Ur Barbiturates Screen Ur Phencyclidine Scrn Ur Amphetamines Screen U Benzodiazepines Scrn Urine Cocaine Screen U Marijuana (THC) Screen Drugs of Abuse Note Plasma/Serum Alcohol Blood Type O POSITIVE Antibody Screen Negative 09/02/17 09/02/17 09/03/17 16:41 16:41 06:39 WBC RBC Hgb Hct MCV MCH MCHC RDW Plt Count Lymph % (Auto) [place] % (Auto) Eos % (Auto) Baso % (Auto) Lymph # [place] # Eos # Baso # Seg Neutrophils % Seg Neutrophils # PT INR APTT Sodium Potassium Chloride Carbon Dioxide Anion Gap BUN Creatinine Estimated GFR BUN/Creatinine Ratio Glucose POC Glucose 71 Calcium Magnesium Total Bilirubin AST ALT Alkaline Phosphatase Ammonia Total Creatine Kinase CK-MB (CK-2) CK-MB (CK-2) Rel Index Troponin T NT-Pro-B Natriuret Pep Total Protein Albumin Albumin/Globulin Ratio TSH Urine Color Yellow Urine Turbidity Clear Urine pH 8.0 H Ur Specific [place] 1.012 Urine Protein <15 mg/dl Urine Glucose (UA) Neg Urine Ketones Neg Urine Blood Neg Urine Nitrite Neg Urine Bilirubin Neg Urine Urobilinogen 4.0 Ur Leukocyte Esterase Neg Urine WBC (Auto) 1.0 Urine RBC (Auto) 1.0 Hyaline Casts 1 Urine Opiates Screen Presumptive positive Urine Methadone Screen Presumptive positive Ur Barbiturates Screen Presumptive negative Ur Phencyclidine Scrn Presumptive negative Ur Amphetamines Screen Presumptive negative U Benzodiazepines Scrn Presumptive negative Urine Cocaine Screen Presumptive negative U Marijuana (THC) Screen Presumptive negative Drugs of Abuse Note Disclamer Plasma/Serum Alcohol Blood Type Antibody Screen 09/03/17 08:06 WBC RBC Hgb Hct MCV MCH MCHC RDW Plt Count Lymph % (Auto) [place] % (Auto) Eos % (Auto) Baso % (Auto) Lymph # [place] # Eos # Baso # Seg Neutrophils % Seg Neutrophils # PT INR APTT Sodium Potassium Chloride Carbon Dioxide Anion Gap BUN Creatinine Estimated GFR BUN/Creatinine Ratio Glucose POC Glucose Calcium Magnesium Total Bilirubin AST ALT Alkaline Phosphatase Ammonia 105.0 H Total Creatine Kinase CK-MB (CK-2) CK-MB (CK-2) Rel Index Troponin T NT-Pro-B Natriuret Pep Total Protein Albumin Albumin/Globulin Ratio TSH Urine Color Urine Turbidity Urine pH Ur Specific [place] Urine Protein Urine Glucose (UA) Urine Ketones Urine Blood Urine Nitrite Urine Bilirubin Urine Urobilinogen Ur Leukocyte Esterase Urine WBC (Auto) Urine RBC (Auto) Hyaline Casts Urine Opiates Screen Urine Methadone Screen Ur Barbiturates Screen Ur Phencyclidine Scrn Ur Amphetamines Screen U Benzodiazepines Scrn Urine Cocaine Screen U Marijuana (THC) Screen Drugs of Abuse Note Plasma/Serum Alcohol Blood Type Antibody Screen Assessment and Plan 1.hepatic enchephalopathy 2.cirrhosis -pt with h/o cirrhosis 2/2 hepatic C who presented with AMS following a recent TIPS procedure on 08/24/2017 -clinically, pt's mentation is now improving with no other GI complaints present such as abd pain, N/V, or signs of bleeding -ammonia 105-trending down -continue current medications (lactulose, xifaxan, lasix and aldactone) -low sodium diet -continue supportive care -pt okay to be d/c once mentation has returned to baseline with f/u clinic appt at [facility] <JEFFREY GUY - Last Filed: 09/03/17 12:27> Medications and Allergies Active Meds: Active Medications Alprazolam (Xanax) 1 mg PO TID PRN PRN Reason: Anxiety Furosemide (Lasix) 40 mg PO QDAY [facility] Insulin Human Lispro (Humalog) 0 unit SUB-Q ACHS [facility]; Protocol Lactulose (Cephulac) 30 gm PO Q8HR [facility] Last Admin: 09/03/17 06:13 Dose: 30 gm Methadone HCl (Dolophine) 10 mg PO BID [facility] Propranolol HCl (Inderal) 10 mg PO BID [facility] Rifaximin (Xifaxan) 550 mg PO BID [facility] Last Admin: 09/03/17 03:08 Dose: Not Given Spironolactone (Aldactone) 100 mg PO BID [facility] Exam - Constitutional Vital Signs: Temp Pulse Resp BP Pulse Ox 98.0 F 64 20 119/54 95 09/03/17 08:26 09/03/17 08:26 09/03/17 08:26 09/03/17 08:26 09/03/17 08:26 - Labs CBC & Chem 7: 09/02/17 15:20 09/03/17 11:02 Lab Results: Laboratory Results - last 24 hr 09/02/17 09/02/17 09/02/17 14:32 15:20 15:20 WBC 6.3 RBC 4.57 Hgb 13.2 Hct 38.6 MCV 85 MCH 29 MCHC 34 RDW 16.1 H Plt Count 135 L Lymph % (Auto) 14.2 [place] % (Auto) 13.8 H Eos % (Auto) 3.5 Baso % (Auto) 1.0 Lymph # 0.9 L [place] # 0.9 H Eos # 0.2 Baso # 0.1 Seg Neutrophils % 67.5 Seg Neutrophils # 4.2 PT INR APTT Sodium 130 L Potassium 4.6 Chloride 90.7 L Carbon Dioxide 25 Anion Gap 19 BUN 9 Creatinine 0.7 L Estimated GFR > 60 BUN/Creatinine Ratio 13 Glucose 125 H POC Glucose 135 H Calcium 10.0 Magnesium Total Bilirubin 2.20 H AST 35 ALT 15 Alkaline Phosphatase 124 Ammonia Total Creatine Kinase CK-MB (CK-2) CK-MB (CK-2) Rel Index Troponin T NT-Pro-B Natriuret Pep Total Protein 7.0 Albumin 3.9 Albumin/Globulin Ratio 1.3 TSH Urine Color Urine Turbidity Urine pH Ur Specific [place] Urine Protein Urine Glucose (UA) Urine Ketones Urine Blood Urine Nitrite Urine Bilirubin Urine Urobilinogen Ur Leukocyte Esterase Urine WBC (Auto) Urine RBC (Auto) Hyaline Casts Urine Opiates Screen Urine Methadone Screen Ur Barbiturates Screen Ur Phencyclidine Scrn Ur Amphetamines Screen U Benzodiazepines Scrn Urine Cocaine Screen U Marijuana (THC) Screen Drugs of Abuse Note Plasma/Serum Alcohol Blood Type Antibody Screen 09/02/17 09/02/17 09/02/17 15:20 15:20 15:20 WBC RBC Hgb Hct MCV MCH MCHC RDW Plt Count Lymph % (Auto) [place] % (Auto) Eos % (Auto) Baso % (Auto) Lymph # [place] # Eos # Baso # Seg Neutrophils % Seg Neutrophils # PT INR APTT Sodium Potassium Chloride Carbon Dioxide Anion Gap BUN Creatinine Estimated GFR BUN/Creatinine Ratio Glucose POC Glucose Calcium Magnesium Total Bilirubin AST ALT Alkaline Phosphatase Ammonia 146.0 H Total Creatine Kinase CK-MB (CK-2) CK-MB (CK-2) Rel Index Troponin T NT-Pro-B Natriuret Pep Total Protein Albumin Albumin/Globulin Ratio TSH 0.587 Urine Color Urine Turbidity Urine pH Ur Specific [place] Urine Protein Urine Glucose (UA) Urine Ketones Urine Blood Urine Nitrite Urine Bilirubin Urine Urobilinogen Ur Leukocyte Esterase Urine WBC (Auto) Urine RBC (Auto) Hyaline Casts Urine Opiates Screen Urine Methadone Screen Ur Barbiturates Screen Ur Phencyclidine Scrn Ur Amphetamines Screen U Benzodiazepines Scrn Urine Cocaine Screen U Marijuana (THC) Screen Drugs of Abuse Note Plasma/Serum Alcohol < 0.01 Blood Type Antibody Screen 09/02/17 09/02/17 09/02/17 15:20 15:20 15:20 WBC RBC Hgb Hct MCV MCH MCHC RDW Plt Count Lymph % (Auto) [place] % (Auto) Eos % (Auto) Baso % (Auto) Lymph # [place] # Eos # Baso # Seg Neutrophils % Seg Neutrophils # PT 15.8 H INR 1.19 H APTT 33.9 Sodium Potassium Chloride Carbon Dioxide Anion Gap BUN Creatinine Estimated GFR BUN/Creatinine Ratio Glucose POC Glucose Calcium Magnesium 2.00 Total Bilirubin AST ALT Alkaline Phosphatase Ammonia Total Creatine Kinase 55 CK-MB (CK-2) 1.6 CK-MB (CK-2) Rel Index 2.9 Troponin T < 0.010 NT-Pro-B Natriuret Pep 204.6 Total Protein Albumin Albumin/Globulin Ratio TSH Urine Color Urine Turbidity Urine pH Ur Specific [place] Urine Protein Urine Glucose (UA) Urine Ketones Urine Blood Urine Nitrite Urine Bilirubin Urine Urobilinogen Ur Leukocyte Esterase Urine WBC (Auto) Urine RBC (Auto) Hyaline Casts Urine Opiates Screen Urine Methadone Screen Ur Barbiturates Screen Ur Phencyclidine Scrn Ur Amphetamines Screen U Benzodiazepines Scrn Urine Cocaine Screen U Marijuana (THC) Screen Drugs of Abuse Note Plasma/Serum Alcohol Blood Type O POSITIVE Antibody Screen Negative 09/02/17 09/02/17 09/03/17 16:41 16:41 06:39 WBC RBC Hgb Hct MCV MCH MCHC RDW Plt Count Lymph % (Auto) [place] % (Auto) Eos % (Auto) Baso % (Auto) Lymph # [place] # Eos # Baso # Seg Neutrophils % Seg Neutrophils # PT INR APTT Sodium Potassium Chloride Carbon Dioxide Anion Gap BUN Creatinine Estimated GFR BUN/Creatinine Ratio Glucose POC Glucose 71 Calcium Magnesium Total Bilirubin AST ALT Alkaline Phosphatase Ammonia Total Creatine Kinase CK-MB (CK-2) CK-MB (CK-2) Rel Index Troponin T NT-Pro-B Natriuret Pep Total Protein Albumin Albumin/Globulin Ratio TSH Urine Color Yellow Urine Turbidity Clear Urine pH 8.0 H Ur Specific [place] 1.012 Urine Protein <15 mg/dl Urine Glucose (UA) Neg Urine Ketones Neg Urine Blood Neg Urine Nitrite Neg Urine Bilirubin Neg Urine Urobilinogen 4.0 Ur Leukocyte Esterase Neg Urine WBC (Auto) 1.0 Urine RBC (Auto) 1.0 Hyaline Casts 1 Urine Opiates Screen Presumptive positive Urine Methadone Screen Presumptive positive Ur Barbiturates Screen Presumptive negative Ur Phencyclidine Scrn Presumptive negative Ur Amphetamines Screen Presumptive negative U Benzodiazepines Scrn Presumptive negative Urine Cocaine Screen Presumptive negative U Marijuana (THC) Screen Presumptive negative Drugs of Abuse Note Disclamer Plasma/Serum Alcohol Blood Type Antibody Screen 09/03/17 09/03/17 09/03/17 08:06 11:02 12:04 WBC RBC Hgb Hct MCV MCH MCHC RDW Plt Count Lymph % (Auto) [place] % (Auto) Eos % (Auto) Baso % (Auto) Lymph # [place] # Eos # Baso # Seg Neutrophils % Seg Neutrophils # PT INR APTT Sodium 131 L Potassium 4.3 Chloride 93.5 L Carbon Dioxide 22 Anion Gap 20 BUN 10 Creatinine 0.6 L Estimated GFR > 60 BUN/Creatinine Ratio 17 Glucose 175 H POC Glucose 107 H Calcium 9.3 Magnesium Total Bilirubin AST ALT Alkaline Phosphatase Ammonia 105.0 H Total Creatine Kinase CK-MB (CK-2) CK-MB (CK-2) Rel Index Troponin T NT-Pro-B Natriuret Pep Total Protein Albumin Albumin/Globulin Ratio TSH Urine Color Urine Turbidity Urine pH Ur Specific [place] Urine Protein Urine Glucose (UA) Urine Ketones Urine Blood Urine Nitrite Urine Bilirubin Urine Urobilinogen Ur Leukocyte Esterase Urine WBC (Auto) Urine RBC (Auto) Hyaline Casts Urine Opiates Screen Urine Methadone Screen Ur Barbiturates Screen Ur Phencyclidine Scrn Ur Amphetamines Screen U Benzodiazepines Scrn Urine Cocaine Screen U Marijuana (THC) Screen Drugs of Abuse Note Plasma/Serum Alcohol Blood Type Antibody Screen Assessment and Plan Patient seen and examined. Agree with note by Chris Pappas. Patient presents with HE in setting of recent TIPS, non-compliance to lactulose, and opiod use ( likely multifactorial). appears to have improved mental status today but not at baseline. cont scheduled lactulose with goal of 2-3 bm's daily. xifaxin BID. can f/u at [facility] where he had TIPS performed once his mental status improves/stable for discharge.
[2017-09-03 11:30] LABS: BUN/Creatinine Ratio 17; Blood Urea Nitrogen 10 mg/dL (9-20); Calcium 9.3 mg/dL (8.4-10.2); Hemolysis Index 5
[2017-09-04] MEDS: DOLOPHINE PO SCH ×2 (00:51→09:35)
[2017-09-04] MEDS: ALDACTONE PO SCH ×2 (00:52→09:37)
[2017-09-04] MEDS: INDERAL PO SCH ×2 (00:53→09:36)
[2017-09-04] MEDS: CEPHULAC PO SCH ×5 (00:53→17:58)
[2017-09-04] MEDS: XIFAXAN PO SCH ×2 (00:54→09:37)
[2017-09-04] MEDS: HumaLOG SUB-Q SCH ×3 (08:23→16:52)
[2017-09-04] MEDS: LASIX PO SCH (09:37)
--- NOTE | 2017-09-04 15:05 | Progress Note ---
Assessment and Plan - Patient Problems (1) Hepatic encephalopathy Current Visit: Yes Status: Acute Plan to address problem: Lactulose increased from 10 to 30 gm q8 and cont Rifaximin 550 bid. GI consult requested . (2) Hyperammonemia Current Visit: Yes Status: Acute Plan to address problem: Sec to Liver failure <Monitor Ammonia level Lactulose adjusted (3) Portal hypertension Current Visit: No Status: Chronic Plan to address problem: Had TIPS .Cont spironolactone (4) T2DM (type 2 diabetes mellitus) Current Visit: Yes Status: Chronic Qualifiers: Diabetes mellitus intermediate project manager insulin use: without intermediate project manager use Plan to address problem: Cont coverage (5) Chronic pain Current Visit: Yes Status: Chronic Qualifiers: Chronic pain type: other chronic pain Qualified Code(s): G89.29 - Other chronic pain Plan to address problem: Cont MethadoneMorphine kept on Hold. Will defer to Hospitalist team/GI to restart MS (6) DVT prophylaxis Current Visit: Yes Status: Acute Plan to address problem: On ScD's Subjective Date of service: 09/04/17 Objective - Constitutional Vitals: Vital Signs - 12hr 09/04/17 09/04/17 09/04/17 08:00 09:35 09:36 Temperature 98.1 F Pulse Rate 61 61 Respiratory 18 18 Rate Blood Pressure 110/65 Blood Pressure 110/65 [Left] O2 Sat by Pulse 97 Oximetry 09/04/17 09/04/17 09:37 10:00 Temperature Pulse Rate 61 Respiratory 18 Rate Blood Pressure 110/65 Blood Pressure [Left] O2 Sat by Pulse 97 Oximetry General appearance: Present: no acute distress, well-nourished - EENT Eyes: PERRL, EOM intact ENT: hearing intact, clear oral mucosa Ears: bilateral: normal - Neck Neck: supple, normal ROM - Respiratory Respiratory effort: normal Respiratory: bilateral: CTA - Breasts Breasts: normal - Cardiovascular Rhythm: regular Heart Sounds: Present: S1 & S2. Absent: gallop, rub Extremities: pulses intact, No edema, normal color, Full ROM - Gastrointestinal General gastrointestinal: Present: soft, non-tender, non-distended, normal bowel sounds - Genitourinary Male genitourinary: normal - Integumentary Integumentary: clear, warm, dry - Musculoskeletal Musculoskeletal: 1, strength equal bilaterally - Neurologic Neurologic: moves all extremities - Psychiatric Psychiatric: memory intact, appropriate mood/affect, intact judgment & insight - Labs CBC & Chem 7: 09/02/17 15:20 09/03/17 11:02 Labs: Abnormal lab results 09/03/17 09/04/17 09/04/17 Range/Units 16:35 11:23 11:27 POC Glucose 128 H 108 H (70-105) Ammonia 83.0 H (25-60) umol/L
--- NOTE | 2017-09-04 15:49 | Gastroenterology Progress Note ---
Assessment and Plan 1. Hepatic encephalopathy - increase scheduled lactulose dosing, cont xifaxin bid. if no bm's with po dose, give enemas to help with constipation (likely from pain medications) 2. Cirrhosis Subjective Date of service: 09/04/17 Principal diagnosis: cirrhosis, HE Interval history: pt seen and examined. no bm's today. awake/alert but still confused/not at baseline. tolerating po. Objective - Constitutional Vitals: Temp Pulse Resp BP Pulse Ox 98.1 F 61 18 110/65 97 09/04/17 08:00 09/04/17 09:37 09/04/17 10:00 09/04/17 09:37 09/04/17 10:00 General appearance: no acute distress - Respiratory Respiratory effort: normal Respiratory: bilateral: CTA - Cardiovascular Rhythm: regular Heart Sounds: Present: S1 & S2 - Gastrointestinal General gastrointestinal: Present: soft, non-tender, non-distended - Neurologic Neurological: oriented to person - Labs CBC & Chem 7: 09/02/17 15:20 09/03/17 11:02 Labs: Laboratory Results - last 24 hr 09/03/17 09/03/17 09/04/17 16:35 21:22 05:47 POC Glucose 128 H 100 99 Ammonia 09/04/17 09/04/17 11:23 11:27 POC Glucose 108 H Ammonia 83.0 H
[2017-09-05] MEDS: ALDACTONE PO SCH ×2 (00:07→10:00)
[2017-09-05] MEDS: XIFAXAN PO SCH ×2 (00:08→10:00)
[2017-09-05] MEDS: HumaLOG SUB-Q SCH ×3 (00:09→11:30)
[2017-09-05] MEDS: INDERAL PO SCH ×2 (00:09→10:00)
[2017-09-05] MEDS: DOLOPHINE PO SCH ×2 (00:10→10:00)
[2017-09-05] MEDS: CEPHULAC PO SCH ×2 (06:54→11:06)
[2017-09-05 08:56] VITALS: BP 115/73
[2017-09-05] MEDS: LASIX PO SCH (10:00)
--- NOTE | 2017-09-05 12:30 | Gastroenterology Progress Note ---
Assessment and Plan 1.hepatic enchephalopathy 2.cirrhosis -pt with h/o cirrhosis 2/2 hepatic C who presented with AMS following a recent TIPS procedure on 08/24/2017 -BM x 2 overnight- ammonia trending down -clinically pt is w/o GI complaints with mentation now improved to baseline -continue current medications (lactulose, xifaxan, lasix and aldactone) -low sodium diet -continue supportive care -no further GI recommendations at this time -pt okay to be d/c with clinic f/u at [place] in 1-2 weeks -will sign off, please call if needed Subjective Date of service: 09/05/17 Principal diagnosis: cirrhosis, HE Interval history: Patient resting in bed w/o acute distress and at bedside. BM x 2 overnight with mentation improved this am. No GI complains such as abd pain, N/V, or signs of bleeding. Objective - Constitutional Vitals: Temp Pulse Resp BP Pulse Ox 98.6 F 60 20 115/73 97 09/05/17 08:17 09/05/17 08:17 09/05/17 08:17 09/05/17 08:17 09/05/17 08:17 General appearance: no acute distress - Respiratory Respiratory: bilateral: CTA - Cardiovascular Rhythm: regular Heart Sounds: Present: S1 & S2 - Gastrointestinal General gastrointestinal: Present: soft, non-tender, non-distended, normal bowel sounds - Neurologic Neurological: alert and oriented x3 - Labs CBC & Chem 7: 09/02/17 15:20 09/03/17 11:02 Labs: Laboratory Results - last 24 hr 09/04/17 09/04/17 09/05/17 16:19 21:23 02:58 POC Glucose 93 122 H 91 09/05/17 09/05/17 06:01 11:32 POC Glucose 112 H 87
--- NOTE | 2017-09-05 15:43 | Discharge Summary ---
Providers - Providers Date of Admission: 09/02/17 17:16 Date of discharge: 09/05/17 Attending physician: SHARON COTA 09/02/17 16:57 Consult to Physician [CONS] Urgent Comment: Consulting Provider: JEFFREY GUY Physician Instructions: Reason For Exam: cirrhosis, hepatic encephalopathy Primary care physician: [employer] Hospitalization Condition: Stable Disposition: DC-01 TO HOME OR SELFCARE - Discharge Diagnoses (1) Hepatic encephalopathy Status: Acute (2) Hyperammonemia Status: Acute (3) Portal hypertension Status: Chronic (4) T2DM (type 2 diabetes mellitus) Status: Chronic Qualifiers: Diabetes mellitus mcc insulin use: without mcc use (5) Chronic pain Status: Chronic Qualifiers: Chronic pain type: other chronic pain Qualified Code(s): G89.29 - Other chronic pain (6) DVT prophylaxis Status: Acute Core Measure Documentation - Palliative Care Palliative Care/ Comfort Measures: Not Applicable - Core Measures Any of the following diagnoses?: none Exam - Constitutional Vitals: Temp Pulse Resp BP Pulse Ox 98.6 F 60 20 115/73 97 09/05/17 08:17 09/05/17 08:17 09/05/17 08:17 09/05/17 08:17 09/05/17 08:17 General appearance: Present: no acute distress, well-nourished - EENT Eyes: Present: PERRL ENT: hearing intact, clear oral mucosa - Neck Neck: Present: supple, normal ROM - Respiratory Respiratory effort: normal Respiratory: bilateral: CTA - Cardiovascular Heart rate: 70 Rhythm: regular Heart Sounds: Present: S1 & S2. Absent: rub, click - Extremities Extremities: pulses symmetrical, No edema Peripheral Pulses: within normal limits - Abdominal General gastrointestinal: Present: soft, non-tender, non-distended, normal bowel sounds Male genitourinary: Present: normal - Integumentary Integumentary: Present: clear, warm, dry - Musculoskeletal Musculoskeletal: gait normal, strength equal bilaterally - Psychiatric Psychiatric: appropriate mood/affect, intact judgment & insight - Neurologic Neurologic: CNII-XII intact, moves all extremities Plan Diet: low cholesterol, low salt Follow up with: PRIMARY CAREMD [Primary Care Provider] - 3-5 Days JEFFREY GUY MD [Staff Physician] - 7 Days
== END 2017-09-05 16:50 | disposition home health service (06) | DRG 442 ==
LOC: ED 13:57 → 3A 17:16
PROVIDERS: ADMIT Internal Medicine; ATTEND Internal Medicine
DX: K72.90 Hepatic failure, unspecified without coma (principal); E72.20 Disorder of urea cycle metabolism, unspecified; E87.1 Hypo-osmolality and hyponatremia; K76.6 Portal hypertension; K74.60 Unspecified cirrhosis of liver; D69.6 Thrombocytopenia, unspecified; G89.29 Other chronic pain; I10 Essential (primary) hypertension; E11.9 Type 2 diabetes mellitus without complications; Z88.8 Allergy status to other drugs, medicaments and biological substances; Z87.442 Personal history of urinary calculi; Z87.891 Personal history of nicotine dependence; Z79.899 Other long term (current) drug therapy; Z82.49 Family history of ischemic heart disease and other diseases of the circulatory system; Z86.19 Personal history of other infectious and parasitic diseases; B19.20 Unspecified viral hepatitis C without hepatic coma
CPT/HCPCS: 36415; 70450; 71045; 80048; 80053; 80307; 80320; 81001; 82140; 82550; 82553; 82962; 83735; 83880; 84443; 84484; 85025; 85610; 85730; 86850; 86900; 86901; 87040; 93005; 93010; G0480

== ENCOUNTER 2018-03-12 07:23 | Day surgery (SDC) | payer BC ==
[2018-03-12] MEDS ORDERED: XYLOCAINE MPF 2% ONE (10:00)
[2018-03-12] MEDS ORDERED: NACL 0.9% 1000 ML 1,000 ML IV SCH (10:00)
--- NOTE | 2018-03-12 10:49 | Anesthesia Consultation ---
Anesthesia Consult and Med Hx Date of service: 03/12/18 - Airway Anesthetic Teeth Evaluation: Poor ROM Head & Neck: Adequate Mental/Hyoid Distance: Adequate Mallampati Class: Class III Intubation Access Assessment: Possibly Difficult - Pulmonary Exam CTA: Yes - Cardiac Exam Cardiac Exam: RRR - Pre-Operative Health Status ASA Pre-Surgery Classification: ASA3 Proposed Anesthetic Plan: MAC - Cardiovascular System Hx Hypertension: Yes (resolved ) - Central Nervous System Hx Back Pain: Yes - Gastrointestinal Hx Gastroesophageal Reflux Disease: Yes - Endocrine Hx Cirrhosis: Yes Hx Liver Disease: Yes (CIRRHOSIS) Hx Non-Insulin Dependent Diabetes: Yes (resolved) - Hematic Hx Anemia: Yes - Other Systems Hx Alcohol Use: Yes (occ )
--- NOTE | 2018-03-12 10:50 | Anesthesia Day of Surgery ---
Anesthesia Day of Surgery - Day of Surgery Patient Examined: Yes Patient H&P Reviewed: Yes Patient is NPO: Yes
[2018-03-12] MEDS ORDERED: VERSED ONE (11:34)
[2018-03-12] MEDS ORDERED: DIPRIVAN 10 MG/ML IV ONE (11:35)
--- NOTE | 2018-03-12 11:47 | Short Stay Summary ---
Short Stay Documentation Date of service: 03/12/18 Narrative H&P: The patient presented for EGD for possible variceal banding. He has a history of varices. History of cirrhosis and ascites. History of TIPS. - History Past Medical History: diabetes, liver disease (cirrhosis secondary to hepatitis C.) Past Surgical History: No surgical history Social history: no significant social history, , lives with family, no smoking, no alcohol abuse, no prescription drug abuse - Allergies and Medications Current Medications: Allergies NSAIDS (Non-Steroidal Anti-Inflamma Allergy (Mild, Verified 04/05/17 11:19) Bleeding ulcer acetaminophen [From Tylenol] Allergy (Verified 01/29/17 11:19) Nausea Home Medications Medication Instructions Recorded Confirmed Last Taken Type RX: Methadone [Dolophine] 10 mg PO BID 07/26/17 03/12/18 07/26/17 06:30 History 10mg RX: ALPRAZolam [Xanax TAB] 1 mg PO BID PRN #40 tablet 09/05/17 03/12/18 Unknown Rx RX: Furosemide [Lasix TAB] 40 mg PO QDAY #30 tablet 09/05/17 03/12/18 Unknown Rx RX: Lactulose [Cephulac] 30 gm PO Q8H #900 oral.liqd 09/05/17 03/12/18 03/11/18 Rx RX: Methadone [Dolophine] 10 mg PO BID tablet 09/05/17 03/12/18 Unknown Rx RX: Propranolol [Inderal] 10 mg PO BID #60 tablet 09/05/17 03/12/18 03/11/18 Rx RX: Rifaximin [Xifaxan] 550 mg PO BID #60 tablet 09/05/17 03/12/18 03/11/18 Rx RX: Spironolactone [Aldactone] 100 mg PO BID #60 tablet 09/05/17 03/12/18 Rx KlonoPIN 1 tab PO DAILY 02/03/18 03/12/18 03/11/18 History Active Medications Sodium Chloride (Nacl 0.9% 1000 Ml) 1,000 mls @ 50 mls/hr IV DIRECT QUINCY Last Admin: 03/12/18 09:41 Dose: 50 mls/hr - Physical exam General appearance: no acute distress, well-nourished Integumentary: no rash, no growths, no abnormal pigmentation HEENT: Atraumatic, PERRLA, EOMI, Mucous membr. moist/pink Lungs: Clear to auscultation, Normal air movement Breasts: deferred Heart: Regular rate, Normal S1, Normal S2, No murmurs Gastrointestinal: normoactive bowel sounds, no tenderness, no distended, no masses, no guarding, no organomegaly Male Genitourinary: deferred Rectal Exam: deferred Extremities: no ischemia, pulses intact, pulses symmetrical, No edema, normal temperature, normal color Neurological: Normal gait, Normal speech, Strength at 5/5 X4 ext, Normal tone, Sensation intact, Cranial nerves 3-12 NL - Brief post op/procedure progress note Date of procedure: 03/12/18 Findings: see dictated report Estimated blood loss: none Pathology: none Condition: stable - Disposition Condition at discharge: Good Disposition: DC-01 TO HOME OR SELFCARE - Discharge Diagnoses (1) Cirrhosis Status: Acute (2) Esophageal varices determined by endoscopy Status: Acute Short Stay Discharge Plan Activity: other (no driving for 24 hours) Weight Bearing Status: Weight Bear as Tolerated Diet: diabetic Follow up with: NARINDER STEVENS MD [Other] - 7 Days
[2018-03-12 11:54] VITALS: BP 139/72
--- NOTE | 2018-03-12 11:54 | Operative Report ---
Operative Report Operative Report: Date of procedure: 03/12/2018 Procedure: Esophagogastroduodenoscopy Preprocedure diagnosis: History of esophageal varices, surveillance study to band further varices. Post procedure diagnosis: No varices. Large amount of retained solid food content consistent with diabetic gastroparesis Endoscopist: Dr. Ruano Anesthesia: Monitored anesthesia care per anesthesia department Medications: Propofol Estimated blood loss: 0 After careful discussion of the nature and purpose of the procedure as well as details the technique risks benefits and alternatives consent was obtained. The patient was placed in the left lateral decubitus position and medicated per anesthesia. The tip of the Reverbeo EQ 570 video scope was passed per orum under direct vision into the esophagus and advanced into the stomach and descending duodenum. The descending duodenum the duodenal bulb and pylorus were symmetrical and normal. The scope was withdrawn into the stomach and the stomach then gently insufflated with air. The antrum was normal. The stomach was further insufflated and the scope was then retroflexed and partially withdrawn. There was a large amount of old food present on the greater curvature which could not be completely seen. The cardia, fundus, and body of the stomach were otherwise within normal limits and easily distensible.The scope was then withdrawn in the forward position. The esophagogastric junction was at 40 cm. The esophageal body was normal throughout with no varices present. The procedure was was well tolerated and the patient was observed in recovery. Impressions: No varices post TIPS. Retained food in the stomach consistent with diabetic gastroparesis. No evidence of gastric outlet obstruction Plan: Repeat endoscopy in one to 2 years. Modification of diet for gastroparesis. Electronically signed: Gene Ruano MD
[2018-03-12] MEDS ORDERED: WATER FOR IRRIG STERILE IR ONE (11:57)
== END 2018-03-12 07:24 | disposition home or self-care (01) ==
LOC: GIO 07:23
PROVIDERS: ATTEND Internal Medicine Gastroenterology
DX: K31.84 Gastroparesis (principal); E11.43 Type 2 diabetes mellitus with diabetic autonomic (poly)neuropathy; I85.00 Esophageal varices without bleeding; K70.31 Alcoholic cirrhosis of liver with ascites; F41.9 Anxiety disorder, unspecified; F32.9 Major depressive disorder, single episode, unspecified; Z98.890 Other specified postprocedural states; Z86.2 Personal history of diseases of the blood and blood-forming organs and certain disorders involving the immune mechanism; Z88.8 Allergy status to other drugs, medicaments and biological substances
CPT/HCPCS: 43235; J2250; J2704; J7030